=== PATIENT | male | born 1955 | race Caucasian/White ===

== ENCOUNTER 2019-04-18 01:57 | Day surgery (SDC) | payer MEDICARE, SELFPAY ==
[2019-04-18] VITALS (10 sets, daily range): BP systolic 121–157; BP diastolic 73–94; PULSE 69–87; RESP 10–20; TEMP 36.7–36.8; O2SAT 97–100; BMI 23.6
[2019-04-18 07:32] LABS: Basophils Absolute Auto 0.1 K/mm3 (0.0-0.1); Eosinophils Absolute Auto 0.1 K/mm3 (0-0.3); Eosinophils Percent Auto 2.7 % (0-4.4); Hematocrit 44.9 % (42.0-52.0); Hemoglobin 14.7 g/dL (14.0-18.0); Immature Granulocyte Absolute 0.01 K/mm3 (0.00-0.031); Immature Granulocyte Percent A 0.2 % (0-0.5); Lymphocytes Absolute Auto 1.02 K/mm3 (0.9-3.2); Lymphocytes Percent Auto 19.4 % (18.3-44.2); Mean Corpuscular HGB Conc 32.7 g/dl (32-36); Mean Corpuscular Hemoglobin 30.1 pg (26-34); Mean Corpuscular Volume 91.8 fl (80-100); Mean Platelet Volume 10.9 fl (7.4-10.4); Monocytes Absolute Auto 0.4 K/mm3 (0.1-0.6); Monocytes Percent Auto 7.6 % (2.6-8.5); Neutrophils Absolute Auto 3.6 K/mm3 (1.3-6.7); Neutrophils Percent Auto 69.1 % (45.5-73.1); Platelet Count Result 184 k/mm3 (150-375); Red Blood Count 4.89 M/mm3 (4.6-6.20); Red Cell Distribution Width 12.3 % (11.5-14.5); White Blood Count 5.3 K/mm3 (4.5-10.0)
[2019-04-18 07:44] LABS: INR 0.9; Prothrombin Time 12.2 Seconds (11.1-14.7)
[2019-04-18 07:49] LABS: Blood Urea Nitrogen 14 mg/dL (9-20); Carbon Dioxide 33 mmol/L (22-30); Chloride 99 mmol/L (98-107); Estimated CRCL calculation 83 ml/min; Estimated Glomerular Filt Rate > 60; Glucose 101 mg/dL (75-110); Potassium 4.3 mmol/L (3.4-5.0); Sodium 139 mmol/L (137-145)
--- NOTE | 2019-04-18 08:41 | WPDMODSED ---
Moderate Sedation Note-Pt Data Patient Data Diagnosis: Severe mitral valve regurgitation, preoperative evaluation Present Complaint: None Procedure to be performed/Plan: Left heart catheterization with selective left and right coronary angiography with left ventriculography and hemodynamics and right heart catheterization with shunt run and hemodynamics History and Physical Update: History and physical reviewed and agree new additional changes. Please see note below as included as history of physical update. Brief HPI: Patient is a very pleasant 63-year-old gentleman with history of hypothyroidism, seizure disorder found to have severe mitral valve regurgitation with posterior mitral valve prolapse who underwent JOSE confirming severe mitral valve regurgitation (at least moderate highly eccentric regurgitation) who is now referred for preoperative workup with left and right heart catheterization prior to consideration for mitral clip at [place]. Review of systems: No fever, chills, edema, near-syncope, syncope, rashes, headache, vision changes, seizure, bleeding, recent illnesses, abdominal pain, dysphagia, myalgias, focal weakness, imbalance, falls, orthopnea or PND. No wheezing, coughing just. Remainder of the review of systems otherwise negative. Impression: Severe mitral valve regurgitation with mitral valve prolapse of the posterior leaflet Seizure disorder Hypothyroidism Plan of care: Referral to [facility] for consideration for mitral clip Preoperative workup with cardiac catheterization. Further recommendations to follow. Allergies Allergy/AdvReac Type Severity Reaction Status Date / Time No Known Allergies Allergy Mild Verified 10/09/11 13:10 Home Medications Medication Instructions Recorded Confirmed Type levothyroxine 125 mcg PO DAILY 03/25/19 04/18/19 History phenobarbital 30 mg PO BID 03/25/19 04/18/19 History phenytoin sodium extended 100 mg PO BID 03/25/19 04/18/19 History [Dilantin Extended] Current Medications: Active Medications See list above Sodium Chloride (Normal Saline Iv) 500 mls @ 100 mls/hr IV CONT .Q5H AYAAN Sedation/Anesthesia: No previous sedation/anesthesia problems (including family history). [facility] Past Medical History Medical History Hypothyroidism Mitral regurgitation Mitral valve prolapse Seizure disorder Family History Family History Father Heart disease Social History Social History Smoking status: Never smoker Second hand tobacco smoke exposure: No Mod Sed Physical Exam Physical Exam Pre Procedural Exam: Normal: Appearance, Eyes, Ears, Nose, Neck (Supple, normal range of motion), Throat (Posterior hypopharynx clear, nonerythematous), Airway (Normal anatomy, no obstruction), Lungs (Clear to auscultation bilaterally), Heart Size, Heart Rate (Systolic murmur), Heart Rhythm, Neuro Exam, Abdomen, Liver, Kidneys, Extremities and Skin Hours since solid foods: 12 Hours since liquid intake: 12 Internal Medicine - PN: Obj Da Vital Signs Vital Signs: Vital Signs - 24 hr 04/18/19 07:23 Temperature 36.8 C Pulse Rate 70 Respiratory Rate 14 Blood Pressure 142/94 H Pulse Oximetry 99 Meds/Results Medications: Active Medications Generic Name Dose Route Start Last Admin Trade Name Freq PRN Reason Stop Dose Admin Sodium Chloride 500 mls @ 100 mls/hr 04/18/19 06:10 Normal Saline Iv IV CONT .Q5H AYAAN Labs CBC & Chem 7: 04/18/19 07:25 04/18/19 07:25 Labs: Laboratory Results - last 24 hr 04/18/19 04/18/19 04/18/19 07:25 07:25 07:25 WBC 5.3 RBC 4.89 Hgb 14.7 Hct 44.9 MCV 91.8 MCH 30.1 MCHC 32.7 RDW 12.3 Plt Count 184 MPV 10.9 H Immature Gran % (Auto) 0.2 Neut % (Auto) 69.1 Lymph % (Auto) 19
--- NOTE | 2019-04-18 09:30 | WPDCARDPROC ---
Cardiac Cath Procedure Note Date of procedure:: 04/18/19 Performing physician:: Jaime Cage MD Indication:: Severe mitral valve regurgitation, preoperative evaluation prior to mitral clip consideration Brief clinical history:: patient is a very pleasant 63-year-old gentleman with a history of hypothyroidism and seizure disorder found to have severe mitral valve regurgitation with posterior mitral valve prolapse referred for preoperative workup prior to mitral valve clip consideration. Procedure Procedure performed:: Left heart catheterization with selective left and right coronary angiography with left ventriculography and hemodynamics Sedation/Medication given:: MODERATE SEDATION/ANESTHESIA ADMINISTRATION: Patient reports no prior problems with sedation/anesthesia. Please see pre-sedation noted for physical examination documentation. Sedation start time was 0908 and end time was 0925 for a total intra-service/procedure face-face time of 17 minutes. A total of 1mg intravenous Versed and a total of 50mcg intravenous Fentanyl in multiple divided doses was administered for moderate sedation. Moderate sedation was administered by qualified/certified observer Jayson Hobbs RN under my supervision with intra-procedure [id number] observation and management throughout the entirety of the procedure. There were no other issues or complications and patient tolerated the procedure well. See post-anesthesia documentation. Access site:: Right femoral artery Estimated blood loss:: 5-10ml Procedure note:: PROCEDURES PERFORMED: 1. Left heart catheterization 2. Selective left and right coronary angiography 3. Left ventriculography and hemodynamics 4. Moderate/conscious sedation administration CATHETERS UTILIZED: Left coronary system- 5 [place]an JL4 catheter Right coronary system- 5 [place] JR4 catheter Left ventriculography and hemodynamics- 5 [place] angled pigtail catheter PROCEDURE IN DETAIL: After verbal and written informed consent was obtained the patient, risks, benefits, and alternatives explained in detail the patient agreed to proceed with the plan of care as outlined above. The patient was subsequently brought to the cardiac catheterization lab, placed on the cardiac catheterization table, and prepped and draped in the usual sterile fashion. Utilizing approximately 10cc of 1% subcutaneous Lidocaine, the right groin was then locally anesthetized. Utilizing the modified Seldinger technique, a 5 [place]an arterial vascular access sheath was inserted in the right common femoral artery easily and without complications. Through this access, coronary angiography was subsequently obtained in multiple standard re-projections. Following this, a 5 [place] angled pigtail catheter was advanced retrograde across aortic valve into the cavity of the left ventricle. Left ventriculography was performed and pullback across aortic valve was subsequently recorded. The vascular access sheath and angiographic catheters were flushed before and after catheter exchanges. At the conclusion of the diagnostic portion of the procedure, all angiographic guidewires and catheters were removed and the 5 [place]an arterial vascular access sheath was then pulled and satisfactory hemostasis was achieved using manual compression. There no complications noted at the conclusion of the diagnostic portion of the study. Findings:: CORONARY ANGIOGRAPHY: The LEFT MAIN arose from the left coronary cusp and was without angiographically significant disease. The left main then bifurcated into the left anterior descending artery and circumflex coronary artery. LEFT ANTERIOR DESCENDING ARTERY: Moderate caliber vessel without angiographically significant disease extending to the LV apex giving rise to a small to moderate size diagonal branch. CIRCUMFLEX CORONARY ARTERY: Moderate caliber nondominant vessel do rise to moderate-sized up obtuse marginal branch without angiographically significant disease.
--- NOTE | 2019-04-18 10:33 | SUR.PHASEII ---
1008-Manual pressure off at 1008. Groin soft and non-tender, no evidence of bleeding or hematoma noted. Strong right pedal pulse noted. Will continue to monitor.
--- NOTE | 2019-04-18 15:19 | SUR.PHASEII ---
1451 DETAILED WRITTEN AND VERBAL DISCHARGE INSTRUCTIONS REVIEWED W PATIENT AND AT BEDSIDE. BOTH VERBALIZE UNDERSTANDING. IV DC'D. PT TAKEN OUT IN WHEELCHAIR.
== END 2019-04-18 13:15 | disposition home or self-care (01) ==
PROVIDERS: PCP Family Medicine; Visit Provider Internal Medicine Cardiovascular Disease
PROC: 4A023N7 Measurement of Cardiac Sampling and Pressure, Left Heart, Percutaneous Approach (ICD-10-PCS; CPT 93452; principal; 2019-04-18 08:30)
DX: Z01.810 Encounter for preprocedural cardiovascular examination (principal); I34.0 Nonrheumatic mitral (valve) insufficiency; I34.1 Nonrheumatic mitral (valve) prolapse; R93.1 Abnormal findings on diagnostic imaging of heart and coronary circulation; I10 Essential (primary) hypertension; G40.909 Epilepsy, unspecified, not intractable, without status epilepticus; E03.9 Hypothyroidism, unspecified
CPT/HCPCS: 36415; 80048; 85025; 85610; 93458; C1887; C1894; J1644; J2250; J3010; J7040

== ENCOUNTER 2020-05-21 08:16 | Outpatient (CLI) | payer MEDICARE, SELFPAY ==
--- NOTE | 2020-05-21 | ECHO_ITS ---
Patient Info Name: Juwan Torres Age: 64 years : 1955 Gender: Male Ht: 70 in Wt: 170 lbs BSA: 1.96 m2 HR: 70 bpm BP: 128 / 76 mmHg Heart Rhythm: Sinus Rhythm Technical Quality: Excellent Exam Date: 05/21/2020 9:01 AM Exam Location: [facility] Patient Status: Outpatient Admit Date: 05/21/2020 Staff Ordering Physician: LAUREN QUINTANILLA MD Cataloging Assistant: Reinier Gonzalez RDCS Attending Provider: LAUREN QUINTANILLA MD Referring Physician: SOCORRO COBIAN; Exam Type: CA echo doppler color flow Study Info Indications I34.0 - Nonrheumatic mitral (valve) insufficiency Complete two-dimensional, color flow and Doppler transthoracic echocardiogram is performed. Strain analysis performed. History/Risk Factors Mitral regurgitation. Summary 1. Complete two-dimensional, color flow and Doppler transthoracic echocardiogram is performed. 2. Left ventricular chamber dimension is normal. 3. Left ventricular systolic function is normal, estimated at 65-70%. 4. Left atrial chamber dimension is mildly enlarged. 5. The mitral valve has posterior prolapse. 6. There is moderate mitral valve regurgitation. 7. Thickened posterior leaflet with significant prolapse. 8. Highly eccentric jet of MR appears to be moderate in severity. Left Ventricle Left ventricular chamber dimension is normal. Left ventricular systolic function is normal, estimated at 65-70%. The left ventricular diastolic function is normal. Right Ventricle Right ventricular chamber dimension is normal. Left Atria Left atrial chamber dimension is mildly enlarged. Right Atria Right atrial chamber dimension is normal. Aortic Valve The aortic valve is normal. Pulmonic Valve The pulmonic valve is normal. Mitral Valve The mitral valve has posterior prolapse. There is moderate mitral valve regurgitation. Thickened posterior leaflet with significant prolapse. Highly eccentric jet of MR appears to be moderate in severity. Tricuspid Valve The tricuspid valve leaflets are normal. Pericardium/Pleural The pericardium appears normal. Aorta The aortic root size at the sinus of Valsalva is normal. Left Ventricular Outflow Tract Name Value Normal LVOT 2D LVOT Diameter 2.0 cm LVOT Doppler LVOT Peak Gradient 4 mmHg LVOT Mean Gradient 2 mmHg LVOT VTI 19 cm LVOT VTI/AV VTI Ratio 0.8 LVOT Stroke Volume 56 ml LVOT CO 4.0 l/min LVOT CI 2.1 l/min/m2 Mitral Valve Name Value Normal MV Doppler MV Peak Gradient 1 mmHg MV Mean Gradient 0 mmHg MV Decel Ford 449 cm/s2 MV PHT
== END 2020-05-21 08:17 | disposition home or self-care (01) ==
PROVIDERS: PCP Family Medicine
DX: I34.0 Nonrheumatic mitral (valve) insufficiency (principal)
CPT/HCPCS: 93306

== ENCOUNTER → 2020-06-01 01:37 | Outpatient (CLI) | payer MEDICARE, SELFPAY ==
[2020-06-02 08:28] LABS: SARS-CoV-2 RNA PCR Negative
== END ==
PROVIDERS: PCP Family Medicine; Visit Provider Internal Medicine Gastroenterology
DX: Z01.812 Encounter for preprocedural laboratory examination (principal); Z20.822 Contact with and (suspected) exposure to COVID-19
CPT/HCPCS: C9803; U0003; U0005

== ENCOUNTER 2020-06-04 00:50 | Day surgery (SDC) | payer MEDICARE, SELFPAY ==
[2020-04-25 13:45] VITALS: BMI 25.1
[2020-06-04 07:10] VITALS: BP 136/72; PULSE 80; RESP 20; TEMP 36.2; O2SAT 98; BMI 22.9
[2020-06-04] MEDS: LACTATED RINGERS 1,000 ML 150 ML IV CONT (07:24)
--- NOTE | 2020-06-04 07:29 | PM.HPGS ---
History of Present Illness History of Present Illness Consent: Risks, benefits, and alternatives have been discussed and questions answered. Patient agrees to proceed with procedure. Chief complaint: Neoplasm Screening Narrative: Juwan Torres is a 64 year old male referred for colon cancer screening. His last colonoscopy was 10 years ago Review of Systems Review of Systems: All systems reviewed & are unremarkable except as noted in HPI and below PMFSH Past Medical History Medical History Hypothyroidism Mitral regurgitation Mitral valve prolapse Seizure disorder Surgical History Surgical History H/O cardiac catheterization H/O right knee surgery Family History Family History Father Heart disease Social History Social History Smoking status: Never smoker Second hand tobacco smoke exposure: No Alcohol intake: current Alcohol use details: SOCIALLY Substance use: unknown Substance use type: unknown Living arrangements: with family Spiritual care concerns: No Meds Home Medications and Allergies Home Medications Medication Instructions Recorded Confirmed Type levothyroxine 125 mcg PO DAILY 03/25/19 06/04/20 History phenobarbital 30 mg PO BID 03/25/19 06/04/20 History phenytoin sodium extended 100 mg PO BID 03/25/19 06/04/20 History [Dilantin Extended] Allergies Allergy/AdvReac Type Severity Reaction Status Date / Time No Known Allergies Allergy Mild Verified 06/04/20 07:08 Vital Signs Vital Signs - 24 hr 06/04/20 07:10 Temperature 36.2 C L Pulse Rate 80 Respiratory Rate 20 Blood Pressure 136/72 Pulse Oximetry 98 Exam Resp: Auscultation: clear to auscultation bilaterally Cardio: Rate: regular rate Rhythm: regular rhythm GI: GI Palp: Yes Soft to palpation and No Tenderness to palpation present (GI) Assessment and Plan Assessment and plan (1) Colon cancer screening: Code(s): Z12.11 - Encounter for screening for malignant neoplasm of colon Status: Acute Assessment and Plan: Colonoscopy with possible biopsy or polypectomy or cautery or injection of substances.
--- NOTE | 2020-06-04 07:49 | P.PNAN_ITS ---
Anes - Initial Pre Proc Eval Procedure: Operation Date: 06/04/20 08:30 Proposed Procedures p Screening Colonoscopy - Sergio Camacho MD Date/Time: 06/04/20 07:49 Surgeon: Sergio Camacho MD Pre Op Diagnosis: Neoplasm Screening Patient Data Age: 64 Gender: M Height: 5 ft 10 in Weight: 72.6 kg Last Vital Signs Temp 97.1 F L 06/04/20 07:10 Pulse 80 06/04/20 07:10 Resp 20 06/04/20 07:10 BP 136/72 06/04/20 07:10 Pulse Ox 98 06/04/20 07:10 Allergies Allergy/AdvReac Type Severity Reaction Status Date / Time No Known Allergies Allergy Mild Verified 06/04/20 07:08 Home Medications Medication Instructions Recorded Confirmed Type levothyroxine 125 mcg PO DAILY 03/25/19 06/04/20 History phenobarbital 30 mg PO BID 03/25/19 06/04/20 History phenytoin sodium extended 100 mg PO BID 03/25/19 06/04/20 History [Dilantin Extended] Patient hx anesthesia problems: none Family hx anesthesia problems: none [facility] Past Medical History Medical History Hypothyroidism Mitral regurgitation Mitral valve prolapse Seizure disorder Surgical History Surgical History H/O cardiac catheterization H/O right knee surgery Family History Family History Father Heart disease Social History Social History Smoking status: Never smoker Second hand tobacco smoke exposure: No Alcohol intake: current Alcohol use details: SOCIALLY Substance use: unknown Substance use type: unknown Living arrangements: with family Spiritual care concerns: No Anes - Eval Final PreProcedure Day of Procedure 06/04/20 07:49 Patient weight: normal Heart: regular rate and rhythm Lungs: clear to auscultation Airway: Mallampati scale class II Neurological: alert and oriented Last oral intake: >/= 8 hours ASA classification: III Emergent: no Anesthetic plan: proceed Anesthesia type and monitoring: general GIVS and standard monitoring Informed Consent: The patient's anesthetic plan and its attendant risks and benefits were discussed with the patient/family/POA. Questions were solicited and answers provided to the satisfaction of the patient/family/POA.
[2020-06-04 08:41] VITALS: BP 96/55; PULSE 86; RESP 18; O2SAT 98
[2020-06-04 08:51] VITALS: BP 111/65; PULSE 71; RESP 16; O2SAT 98
[2020-06-04 09:01] VITALS: BP 117/66; PULSE 76; RESP 20; O2SAT 98
== END 2020-06-04 09:16 | disposition home or self-care (01) ==
PROVIDERS: PCP Family Medicine; Visit Provider Internal Medicine Gastroenterology
PROC: 0DJD8ZZ Inspection of Lower Intestinal Tract, Via Natural or Artificial Opening Endoscopic (ICD-10-PCS; CPT 45378; principal; 2020-06-04 08:30)
DX: Z12.11 Encounter for screening for malignant neoplasm of colon (principal); K64.8 Other hemorrhoids; E03.9 Hypothyroidism, unspecified; I34.0 Nonrheumatic mitral (valve) insufficiency; I34.1 Nonrheumatic mitral (valve) prolapse; G40.909 Epilepsy, unspecified, not intractable, without status epilepticus
CPT/HCPCS: G0121; J2704; J7120

== ENCOUNTER 2021-07-22 13:14 | Outpatient (CLI) | payer MEDICARE, SELFPAY ==
--- NOTE | 2021-07-22 | ECHO_ITS ---
Patient Info Name: Juwan Torres Age: 65 years : 1955 Gender: Male Ht: 70 in Wt: 170 lbs BSA: 1.96 m2 HR: 85 bpm BP: 143 / 78 mmHg Heart Rhythm: Sinus Rhythm Technical Quality: Fair Exam Date: 07/22/2021 2:22 PM Exam Location: [facility] Patient Status: Outpatient Admit Date: 07/22/2021 Staff Ordering Physician: Cj Marie MD Core Sticker: Anai Hsu RDCS Attending Provider: Cj Marie MD Referring Physician: Cynthia HICKEY; Exam Type: CA echo doppler color flow Study Info Indications - MITRAL INSUFFICIANCY Complete two-dimensional, color flow and Doppler transthoracic echocardiogram is performed. Summary 1. Complete two-dimensional, color flow and Doppler transthoracic echocardiogram is performed. 2. Left ventricular chamber dimension is normal. 3. Left ventricular systolic function is normal, estimated at 60-65%. 4. The mitral valve has posterior prolapse. 5. There is moderate mitral valve regurgitation. Left Ventricle Left ventricular chamber dimension is normal. Left ventricular systolic function is normal, estimated at 60-65%. Left ventricular septal wall motion is normal. The left ventricular diastolic function is normal. Right Ventricle Right ventricular chamber dimension is normal. Left Atria Left atrial chamber dimension is mildly enlarged. Right Atria Right atrial chamber dimension is normal. Aortic Valve The aortic valve is normal. Pulmonic Valve The pulmonic valve is normal. Mitral Valve The mitral valve has posterior prolapse. There is moderate mitral valve regurgitation. Tricuspid Valve The tricuspid valve leaflets are normal. Pericardium/Pleural The pericardium appears normal. Aorta The aortic root size at the sinus of Valsalva is normal. Left Ventricular Outflow Tract Name Value Normal LVOT 2D LVOT Diameter 2.1 cm LVOT Doppler LVOT Peak Gradient 5 mmHg LVOT Mean Gradient 3 mmHg LVOT VTI 21 cm LVOT VTI/AV VTI Ratio 1.0 LVOT Stroke Volume 69 ml LVOT CO 14.8 l/min LVOT CI 7.6 l/min/m2 Pulmonic Valve Name Value Normal PV Doppler PV Peak Gradient 2 mmHg Mitral Valve Name Value Normal MV Doppler MV Decel Door 414 cm/s2 MV PHT 54 ms MV Area (PHT) 4.0 cm2 4.0-5.0 MV Diastolic Functi
== END 2021-07-22 13:15 | disposition home or self-care (01) ==
LOC: ANHCARD 13:15
PROVIDERS: PCP Family Medicine; Visit Provider Family Medicine
DX: I34.0 Nonrheumatic mitral (valve) insufficiency (principal)
CPT/HCPCS: 93306

== ENCOUNTER 2022-09-23 14:07 | Outpatient (CLI) | payer MEDICARE, SELFPAY ==
[2022-09-23 15:10] LABS: Basophils Percent Auto 0.5 % (0.2-1.2); Eosinophils Absolute Auto 0.2 K/mm3 (0-0.3); Eosinophils Percent Auto 2.8 % (0-4.4); Hematocrit 40.6 % (42.0-52.0); Hemoglobin 13.4 g/dL (14.0-18.0); Immature Granulocyte Absolute 0.01 K/mm3 (0.00-0.031); Immature Granulocyte Percent A 0.2 % (0-0.5); Lymphocytes Percent Auto 24.6 % (18.3-44.2); Mean Corpuscular Hemoglobin 28.8 pg (26-34); Mean Corpuscular Volume 87.1 fl (80-100); Mean Platelet Volume 10.9 fl (7.4-10.4); Monocytes Absolute Auto 0.4 K/mm3 (0.1-0.6); Monocytes Percent Auto 7.2 % (2.6-8.5); Neutrophils Absolute Auto 3.9 K/mm3 (1.3-6.7); Neutrophils Percent Auto 64.7 % (45.5-73.1); Platelet Count Result 190 k/mm3 (150-375); Red Blood Count 4.66 M/mm3 (4.6-6.20); Red Cell Distribution Width 13.6 % (11.5-14.5); White Blood Count 6.1 K/mm3 (4.5-10.0)
== END 2022-09-23 14:08 | disposition home or self-care (01) ==
LOC: ANHLAB 14:12
PROVIDERS: PCP Nurse Practitioner Family; Visit Provider Specialist
DX: I33.0 Acute and subacute infective endocarditis (principal)
CPT/HCPCS: 36415; 85025; 87040

== ENCOUNTER 2024-06-16 08:13 | Outpatient (CLI) | payer MEDICARE, SELFPAY ==
--- NOTE | ~2024-06-16 | CT_ITS ---
CT Scan of the Chest without Contrast: Clinical Indication: Pulmonary nodule Technique: Contiguous sections were acquired throughout the chest without intravenous contrast. Dose reduction technique was used on this scan by utilizing automated exposure control and iterative recon struction technique. The dose-length product (DLP) was 180.23 mGy-cm. COMPARISON: 05/23/2022 Findings: There is no evidence of any significant mediastinal, hilar or axillary lymphadenopathy. The mediastin al soft tissues appear normal. There is no evidence of pleural or pericardial effusion. 9 mm right middle lobe pulmonary nodule present. There is additional peripheral scarring in the right middle lobe peripherally. Images through the upper abdomen reveal no abnormalities. Impression: 9 mm right middle lobe pulmonary nodule. According to Fleischner Society criteria, recommend either 3 month follow-up CT, PET/CT, or attempted tissue sampling. Adjacent right middle lobe scarring is also present. Reviewed, dictated and finalized at [facility]. Impression: 9 mm right middle lobe pulmonary nodule. According to Fleischner Society criter ia, recommend either 3 month follow-up CT, PET/CT, or attempted tissue sampling . Adjacent right middle lobe scarring is also present.
--- OUTSIDE RECORDS SUMMARY | 2024-06-16 08:17 | XMS_ITS | Data Portability ---
Author Organization [place] [facility], Main Office Address [address] [place] [address] Assessment Encounter Date Assessment Date Assessment LastModified by Organization Details LastModified Time 06/20/2022 06/20/2022 I have reconciled the patient's medications post their discharge from inpatient facility. Not available 06/20/2022 12:12:43 Plan of Treatment Reminders Order Date Submit Date Provider Last Modified By Organization Details Last Modified Time Details Appointments None recorded. Lab PSA, serum or plasma [address] (Lab), [address] [place], [address], 3 08:36:33 TSH, serum or plasma 2022 023 [facility] (Lab), [address] [place], [address], 3 14:02:09 Referral None recorded. Procedures None recorded. Surgeries None recorded. Imaging None recorded. Medication Orders phenobarbit al 30 mg tablet 2022 023 [id number], [address], [place], [id number], 3 08:01:25 Dilantin Extended 100 mg capsule 2022 023 [facility] #[id number], [address], [place], [id number], 3 10:02:58 Patient TargetsNo targets recorded. Patient Instructions Encounter Date Encounter Id Patient Instructions Last Modified By Organization Details Last Modified Time 06/20/2022 [id number] Thank you for your visit to our office today. We would like to request that you reach out to your referring or previous provider and request that they send us a Summary of Care in electronic form, so that we may have it on file in your medical record. At your visit, we had the medical records we needed to provide you with the best possible care; however, for insurance purposes, an electronic Summary of Care is beneficial. Thank you for your assistance in obtaining this information and we look forward to providing continued care to you. Please review your medication list from the Summary of Care for this visit. If there are any differences from what you are currently taking at home, please call us to discuss. Not available 06/20/2022 11:19:34 FU in 3-4mo. Not available 06/23/2022 08:17:21 10/01/2022 [id number] FU in 6 mo, sooner as needed. Not available 10/01/2022 08:36:17 Reason for Referral None Reported. Results Created Date Observation Date Name Description Value Unit Range Abnormal Flag Note LastModifiedBy Organization Detail LastModifiedTime 05/07/1905/15/2022 TESTO STERO NE, FREE+ TOTAL LC/MS testosterone , total, lc/MS 560.1 NG/dL 264.0- 916.0 This [facility] rp LC/MS -MS metho d is curre ntly certi fied by the CDC Hormo ne Stand jose antoniodiz ation Progr am (HoSt ). Adult male refer ence inter thanh is based on a popul ation of healt hy nonob porfirio males (BMI <30) betwe en 19 and 39 years old. Dimas machado, et.al . JCEM 2017, 102;1 161-1 173. PMID: 65469 103. Not Available [facility] (Lab) [address] [place], [address], 05/15/2022 00:07:11 05/07/1905/15/2022 TESTO STERO NE, FREE+ TOTAL LC/MS testosterone , free 6.67 NG/dL 5.00-2 1.00 Not Available [facility] (Lab) [address] [place], [address], 05/15/2022 00:07:11 05/07/19 23 05/15/2022 TESTO STERO NE, FREE+ TOTAL LC/MS % free testosterone 1.19 % 1.50-4 .20 low Perfo rmed at: [facility] [place] [address] [facility] , [place] [address] Lab Direc tor: Amisha pillai MD, Phone : [phone] Not Available [facility] (Lab) [address] [place], [address], 05/15/2022 00:07:11 05/07/19 23 05/07/2022 PHENO SULTANA GENI phenobarbita l 8.6 mcg/m L 15.0-4 0.0 low Not Available [facility] (Lab) [address] [place], [address], 05/07/2022 19:01:44 05/07/19 23 05/07/2022 TEST NOT PERFO RMED test not performed see commen t Pheny toin/ Tashi tin needs to be drawn a red top no gel Not Available [facility] (Lab) [address] [place], [address], 05/07/2022 18:37:42 05/07/19 23 05/07/2022 FOLAT E, SERUM /PLAS MA folate 7.01 NG/mL 2.76-2 0.0 Not Available [facility] (Lab) [address] [place], [address], 05/07/2022 15:42:49 05/07/19 23 05/07/2022 VITAM IN B12 (LUZ MARIA BHARAT ) vb12 555 pg/mL 239-93 1 Not Available [facility] (Lab) [address] [place], [address], 05/07/2022 15:42:44 05/07/19 23 05/07/2022 HEMOG LOBIN A1C HA1C 5.4 % 4.0-6. 0 Diabe sobeida Abdoulayee nabil Crite festus: <5.7% Consi stent with absen ce of diabe sobeida 5.7-6 .4% Consi stent with incre ased risk for diabe sobeida (pred iabet es) >OR=6 .5% Consi stent with diabe sobeida REFER ENCE: Diabe sobeida Care 2016, 39(Garcia ppl.1 ):s13 -s22 Not Available [facility] (Lab) [address] [place], [address], 05/07/2022 15:19:29 05/07/19 23 05/07/2022 VITAM IN D 25-HY DROXY vd25oh 46.2 NG/mL 30-100 Vitam in D Statu s: Defic ient: <20 ng/mL Insuf ficie nt: 20-29 ng/mL Suffi cient : 30-10 0 ng/mL Not Available [facility] (Lab) [address] [place], [address], 05/07/2022 15:12:31 05/07/19 23 05/07/2022 TSH W/REF AARON FT4 TSH with reflex free T4 1.170 uIU/m L 0.465- 4.680 Not Available [facility] (Lab) [address] [place], [address], 05/07/2022 14:19:04 05/07/19 23 05/07/2022 LIPID PANEL cholesterol 209 mg/dL 140-19 9 high NIH RENEE NSUS RECOM MENDA TION FOR MARIA LUZ STERO L: ADULT CHILD LOW RISK: <200 <170 BORDE RLINE : <200- 239 ----- HIGH RISK: >240 >200 Not Available [facility] (Lab) [address] [place], [address], 05/07/2022 13:48:18 05/07/19 23 05/07/2022 LIPID PANEL triglyceride s 155 mg/dL 0-150 high NIH RENEE NSUS REPOR T RECOM MENDA TION FOR TRIGL YCERI SHANNON: ADULT CHILD LOW RISK: <150 ----- BODER LINE: 150-1 99 ----- HIGH RISK: >200 ----- Not Available [facility] (Lab) [address] [place], [address], 05/07/2022 13:48:18 05/07/19 23 05/07/2022 LIPID PANEL HDL cholesterol 33 mg/dL 40- low Not Available [facility] (Lab) [address] [place], [address], 05/07/2022 13:48:18 05/07/1905/07/2022 LIPID PANEL LDL cholesterol, calculated 145 mg/dL 0-130 high NIH RENEE NSUS REPOR T RECOM MENDA TIONS FOR LDL: ADULT CHILD LOW RISK <130 <110 (OPTI MAL LDL) <100 ----- SUKH RLINE : 130-1 59 ----- HIGH RISK: >160 >130 A TRIGL YCERI DE RESUL T >400 INVAL IDATE S THE CALCU LATIO N FOR LDL FRACT IONAT ION - THE LDL RESUL T WILL NOT BE REPOR RANJITH. Not Available [facility] (Lab) [address] [place], [address], 05/07/2022 13:48:18 05/07/1905/07/2022 BASIC METAB OLIC PANEL sodium 136 mmol/ L 137-14 5 low Not Available [facility] (Lab) [address] [place], [address], 05/07/2022 13:48:04 05/07/19 23 05/07/2022 BASIC METAB OLIC PANEL potassium 4.6 mmol/ L 3.5-5. 1 Not Available [facility] (Lab) [address] [place], [address], 05/07/2022 13:48:04 05/07/19 23 05/07/2022 BASIC METAB OLIC PANEL chloride 98 mmol/ L 98-107 Not Available [facility] (Lab) [address] [place], [address], 05/07/2022 13:48:04 05/07/19 23 05/07/2022 BASIC METAB OLIC PANEL carbon dioxide 30 mmol/ L 22-30 Not Available [facility] (Lab) [address] [place], [address], 05/07/2022 13:48:04 05/07/19 23 05/07/2022 BASIC METAB OLIC PANEL anion gap 12.6 mmol/ L 14-22 low Not Available [facility] (Lab) [address] [place], [address], 05/07/2022 13:48:04 05/07/19 23 05/07/2022 BASIC METAB OLIC PANEL glucose 105 mg/dL 70-99 high Not Available [facility] (Lab) [address] [place], [address], 05/07/2022 13:48:04 05/07/19 23 05/07/2022 BASIC METAB OLIC PANEL BUN 11 mg/dL 8-19 Not Available [facility] (Lab) [address] [place], [address], 05/07/2022 13:48:04 05/07/19 23 05/07/2022 BASIC METAB OLIC PANEL creatinine 0.73 mg/dL 0.66-1 .25 Not Available [facility] (Lab) [address] [place], [address], 05/07/2022 13:48:04 05/07/19 23 05/07/2022 BASIC METAB OLIC PANEL GFR >60 Refer ence Range : [place] ge GFR Healt hy Adult : >60 mL/mi n/1.7 3 m2 Chron ic Kidne y Disea se: 15-60 mL/mi n/1.7 3 m2 Kidne y Failu re: <15/m L/min /1.73 m2 www.n iddk. nih.g ov The MDRD study equat ion has not been valid ated in child rita <18 years of age; pregn ant women ; the elder ly >85 years of age; or in some racia l or ethni c subgr oups, such as Hispa nics. Outsi de the valid ated gerri eters , estim ated GFR is less accur ate, requi ring clini ynes judgm ent on a case- by-ca se basis . Clini ynes inter preta tion for other races and ages must be made by the clini genoveva. The MDRD study equat ion has not been valid ated for the evalu ation of serum creat inine relat ed to nutri hernesto l statu s or medic ation usage . For perso ns <18 years of age, a pedia tric GFR calcu lator is avail able on the [facility] websi te: https ://sonja cho.jenny rios.brie barroso/pr ofess ional s/kdo qi/gf r_cal culat or Not Available [facility] (Lab) [address] [place], [address], 05/07/2022 13:48:04 05/07/19 23 05/07/2022 BASIC METAB OLIC PANEL calcium 9.2 mg/dL 8.4-10 .2 Not Available [facility] (Lab) [address] [place], [address], 05/07/2022 13:48:04 05/07/19 23 05/07/2022 CBC/C OMPLE TE BLD COUNT W/DIF F white blood cells 6.9 x10'3 /uL 4.2-10 .8 Not Available [facility] (Lab) [address] [place], [address], 05/07/2022 13:37:55 05/07/19 23 05/07/2022 CBC/C OMPLE TE BLD COUNT W/DIF F red blood cells 4.85 x10'6 /uL 4.10-5 .80 Not Available [facility] (Lab) [address] [place], [address], 05/07/2022 13:37:55 05/07/19 23 05/07/2022 CBC/C OMPLE TE BLD COUNT W/DIF F hemoglobin 14.0 g/dL 13.2-1 7.0 Not Available [facility] (Lab) [address] [place], [address], 05/07/2022 13:37:55 05/07/19 23 05/07/2022 CBC/C OMPLE TE BLD COUNT W/DIF F hematocrit 42.8 % 39.3-5 0.0 Not Available [facility] (Lab) [address] [place], [address], 05/07/2022 13:37:55 05/07/19 23 05/07/2022 CBC/C OMPLE TE BLD COUNT W/DIF F mean red cell volume 88.2 fL 80.0-9 7.0 Not Available [facility] (Lab) [address] [place], [address], 05/07/2022 13:37:55 05/07/19 23 05/07/2022 CBC/C OMPLE TE BLD COUNT W/DIF F mean red cell hemoglobin 28.9 pg 27.0-3 3.0 Not Available [facility] (Lab) [address] [place], [address], 05/07/2022 13:37:55 05/07/19 23 05/07/2022 CBC/C OMPLE TE BLD COUNT W/DIF F mean RBC HGB concentratio n 32.7 g/dL 31.0-3 6.0 Not Available [facility] (Lab) [address] [place], [address], 05/07/2022 13:37:55 05/07/19 23 05/07/2022 CBC/C OMPLE TE BLD COUNT W/DIF F red cell distribution width 13.2 % 11.8-1 5.5 Not Available [facility] (Lab) [address] [place], [address], 05/07/2022 13:37:55 05/07/19 23 05/07/2022 CBC/C OMPLE TE BLD COUNT W/DIF F platelets 226 x10'3 /uL 150-40 0 Not Available [facility] (Lab) [address] [place], [address], 05/07/2022 13:37:55 05/07/19 23 05/07/2022 CBC/C OMPLE TE BLD COUNT W/DIF F mean platelet volume 10.3 fL 9.0-12 .4 Not Available [facility] (Lab) [address] [place], [address], 05/07/2022 13:37:55 05/07/19 23 05/07/2022 CBC/C OMPLE TE BLD COUNT W/DIF F neutrophils 77.0 % 39.0-7 2.0 high Not Available [facility] (Lab) [address] [place], [address], 05/07/2022 13:37:55 05/07/19 23 05/07/2022 CBC/C OMPLE TE BLD COUNT W/DIF F lymphocytes 11.8 % 16.0-4 7.0 low Not Available [facility] (Lab) [address] [place], [address], 05/07/2022 13:37:55 05/07/19 23 05/07/2022 CBC/C OMPLE TE BLD COUNT W/DIF F monocytes 9.1 % 5.0-12 .0 Not Available [facility] (Lab) [address] [place], [address], 05/07/2022 13:37:55 05/07/19 23 05/07/2022 CBC/C OMPLE TE BLD COUNT W/DIF F eosinophils 1.2 % 1.0-7. 0 Not Available [facility] (Lab) [address] [place], [address], 05/07/2022 13:37:55 05/07/19 23 05/07/2022 CBC/C OMPLE TE BLD COUNT W/DIF F basophils 0.6 % 0.0-2. 0 Not Available [facility] (Lab) [address] [place], [address], 05/07/2022 13:37:55 05/07/1905/07/2022 CBC/C OMPLE TE BLD COUNT W/DIF F immature granulocytes 0.3 % 0.00-0 .50 Not Available [facility] (Lab) [address] [place], [address], 05/07/2022 13:37:55 05/07/19 23 05/07/2022 CBC/C OMPLE TE BLD COUNT W/DIF F neutrophils, absolute count 5.31 x10'3 /uL 1.5-8. 0 Not Available [facility] (Lab) [address] [place], [address], 05/07/2022 13:37:55 05/07/19 23 05/07/2022 CBC/C OMPLE TE BLD COUNT W/DIF F lymphocytes, absolute count 0.81 x10'3 /uL 1.07-3 .43 low Not Available [facility] (Lab) [address] [place], [address], 05/07/2022 13:37:55 05/07/19 23 05/07/2022 CBC/C OMPLE TE BLD COUNT W/DIF F monocytes, absolute count 0.63 x10'3 /uL 0.29-0 .99 Not Available [facility] (Lab) [address] [place], [address], 05/07/2022 13:37:55 05/07/19 23 05/07/2022 CBC/C OMPLE TE BLD COUNT W/DIF F eosinophils, absolute count 0.08 x10'3 /uL 0.02-0 .53 Not Available [facility] (Lab) [address] [place], [address], 05/07/2022 13:37:55 05/07/19 23 05/07/2022 CBC/C OMPLE TE BLD COUNT W/DIF F basophils, absolute count 0.04 x10'3 /uL 0.01-0 .08 Not Available [facility] (Lab) [address] [place], [address], 05/07/2022 13:37:55 05/07/19 23 05/07/2022 CBC/C OMPLE TE BLD COUNT W/DIF F immature granulocytes ,absolute 0.02 x10'3 /uL 0.00-0 .05 Not Available [facility] (Lab) [address] [place], [address], 05/07/2022 13:37:55 05/07/19 23 05/07/2022 CBC/C OMPLE TE BLD COUNT W/DIF F nucleated red blood cells 0.0 % -0 Not Available [facility] (Lab) [address] [place], [address], 05/07/2022 13:37:55 05/07/19 23 05/07/2022 CBC/C OMPLE TE BLD COUNT W/DIF F NRBC# 0.00 x10'3 /uL Not Available [facility] (Lab) [address] [place], [address], 05/07/2022 13:37:55 10/02/19 23 10/01/2022 TSH W/REF AARON FT4 TSH with reflex free T4 1.540 uIU/m L 0.465- 4.680 Not Available [facility] (Lab) [address] [place], [address], 10/01/2022 14:02:09 10/02/19 23 10/01/2022 PSA, TOTAL PSA, total 1.20 NG/mL 0.00-4 .00 Not Available [facility] (Lab) [address], [place], [address], 10/01/2022 14:02:15 10/22/19 23 10/21/2022 PSA, serum or plasm a No observ ation record ed. Not Available 2022 08:36:33 11/20/19 23 11/19/2022 MRI, brain + brain stem, w/wo contr ast No observ ation record ed. [facility]: Pulmonology [address] [facility], [place], [address], 11/20/2022 07:38:47 Result Notes None recorded. Problems Name Problem SNOMED Code Status Onset Date Resolution Date Notes Provider Name and Address Organization Details Recorded Time Administratio n of pneumococcal vaccine Active 2022 Not Available [facility] 3 01:47:02 Tachycardia 7816668 Active 2022 Not Available [facility] 3 01:47:02 Hypothyroidis m 51513870 Active 2022 Not Available [facility] 3 01:47:02 Fatigue 95286108 Active 2022 Not Available [facility] 3 01:47:02 Epilepsy 68486229 Active 2022 Not Available [facility] 3 01:47:02 Nausea 440272472 Active 2022 Dionna Souza NP [address] [facility] [facility] [address], [place], [address] , [employer] [facility] 3 11:27:29 History of repair of mitral valve 661403177 Active 2022 Dionna Souza NP [address] [facility], [place], [address] , [place] [facility] 3 08:16:53 Excessive cerumen in ear canal 570695774 Active 2022 Dionna Souza NP [address] [facility], [address] [address], [place], [address] , [facility] [employer] [facility] 3 08:29:23 Nocturia 691761707 Active 2022 Dionna Souza NP [address] [facility], [facility] [address], [place], [address] , [facility] [employer] [facility] 3 08:37:06 Problem Notes None recorded. Procedures Surgical History Date Name Laterality Status Provider Name and Address Organization Details Recorded Time 3 Transitional _Care_Manage ment completed Dionna Gerardo RN [facility] [employer] [facility] 06/20/2022 11:19:35 3 Ananda sten, valve or trans af completed Dionna Gerardo RN [facility] [employer] [facility] 06/20/2022 11:30:33 Knee Surgery completed Not Available [employer] 05/29/2022 01:46:47 Imaging Results Imaging Date Name Status LastModified by Organiz ation Details LastModified Time 10/21/2022 PSA, serum or plasma completed Information not available 10/24/2022 08:36:33 11/19/2022 MRI, brain + brain stem, w/wo contrast completed [facility]: Pulmonology [address] [place], [address], 11/20/2022 07:38:47 Procedure Notes None recorded. Medical Equipment None Reported. Allergies No known drug allergies Medications Name Sig Start Date Stop Date Status Note LastModified by Organization Details LastModified Time amoxicill in 500 mg capsule TAKE 4 CAPSULES BY MOUTH 30 TO 60 MINUTES PRIOR TO DENTAL APPOINTM ENT active Not Available Not Available No t Available azithromy joaquin 250 mg tablet TK 2 TS PO ON DAY 1, THEN TK 1 T PO D FOR 4 DAYS 05/07 completed Not Available Not Available Not Available metoprolo l succinate ER 50 mg tablet,ex tended release 24 hr 1.5 tab po daily. active Not Available Not Available No t Available phenytoin sodium extended 100 mg capsule TAKE 1 CAPSULE BY MOUTH EVERY MORNING AND 2 CAPSULES EVERY EVENING active Not Available Not Available No t Available ondansetr on 8 mg disintegr ating tablet DISSOLVE 1 TABLET ON THE TONGUE TWICE DAILY NEEDED 10/01 completed Not Available Not Available Not Available potassium chloride ER 20 mEq tablet,ex tended release(p art/cryst ) 1 tab po daily 07/[address] Kaci sheehan dc 06/2022 Not Available Not Available Not Available levothyro xine 125 mcg tablet TAKE 1 TABLET BY MOUTH EVERY MORNING ON AN EMPTY STOMACH active Not Available Not Available No t Available phenobarb ital 30 mg tablet TAKE 1 TABLET BY MOUTH EVERY MORNING AND 2 TABLETS AT BEDTIME active Not Available Not Available No t Available furosemid e 20 mg tablet 1 tab po daily 07/[address] Kaci sheehan dc 06/2022 Not Available Not Available Not Available ceftriaxo ne 10 gram solution for injection 10/01 completed Not Available Not Available Not Available ceftriaxo ne 2 gram solution for injection 10/01 completed Not Available Not Available Not Available oxycodone 5 mg tablet 06/20 completed Not Available Not Available Not Available acetamino phen 2 tabs q 6 hours as needed 10/01 completed Not Available Not Available Not Available Vitals Date Recorded Body mass index (BMI) Body height Oxygen saturation Oxygen saturation in Arterial blood by Pulse oximetry Heart rate Respiratory rate Body temperature Body weight Systolic blood pressure Diastolic blood pressure Provider Name and Address Organization Details Last Updated DateTime 3 22.5 kg/m2 177.8 cm 97 % 97 % 106 /min 16 /min 98.5 [degF] 09094.2 8 g 120 mm[Hg] 78 mm[Hg] Not Available [facility] 3 01:46:53 Date Recorded Body mass index (BMI) Body height Oxygen saturation Oxygen saturation in Arterial blood by Pulse oximetry Heart rate Respiratory rate Body temperature Body weight Systolic blood pressure Diastolic blood pressure Provider Name and Address Organization Details Last Updated DateTime 3 22.4 kg/m2 177.8 cm 98 % 98 % 98 /min 16 /min 98.1 [degF] 17596.7 7 g 106 mm[Hg] 69 mm[Hg] Not Available [facility] 3 01:46:53 Date Recorded Body height Body mass index (BMI) Body weight Body temperature Respiratory rate Heart rate Oxygen saturation Oxygen saturation in Arterial blood by Pulse oximetry Systolic blood pressure Diastolic blood pressure Provider Name and Address Organization Details Last Updated DateTime 3 177.8 cm 21.4 kg/m2 90254.3 1 g 97 [degF] 20 /min 88 /min 99 % 99 % 90 mm[Hg] 68 mm[Hg] Dionna Gerardo RN [facility] [employer] [facility] 3 11:26:37 Date Recorded Body height Body mass index (BMI) Body weight Body temperature Heart rate Respiratory rate Oxygen saturation Oxygen saturation in Arterial blood by Pulse oximetry Pain severity - 0-10 verbal numeric rating [Score] - Reported Systolic blood pressure Diastolic blood pressure Provider Name and Address Organization Details Last Updated DateTime 3 177.8 cm 20.5 kg/m2 94644.0 6 g 96.9 [degF] 88 /min 16 /min 98 % 98 % 0 128 mm[Hg] 80 mm[Hg] Dionna Gerardo RN [facility] [employer] [facility] 3 08:05:21 Social History Question Answer Notes LastModified by Organization Details LastModified Time Tobacco Smoking Status Never Smoker Dionna Gerardo RN [facility] 10/01/2022 08:01:50 Do You Have An Advance Directive? No [id number] Information not available 05/29/2022 What Is Your Level Of Alcohol Consumption? Occasional [id number] Information not available 05/29/2022 Are You Blind Or Do You Have Difficulty Seeing? Yes Wears Glasses Information not available 10/01/2022 What Is Your Level Of Caffeine Consumption? Moderate [id number] Information not available 05/29/2022 What Is Your Code Status? Full Code Information not available 10/01/2022 In The 14 Days Before Symptom Onset, Have You Had Close Contact With A [facility]-19 While That Case Was Ill? No Information not available 10/01/2022 In The 14 Days Before Symptom Onset, Have You Had Close Contact With A Person Who Is Under Investigation For COVID-19 While That Person Was Ill? No Information not available 10/01/2022 Are You Deaf Or Do You Have Serious Difficulty Hearing? No Information not available 10/01/2022 What Type Of Diet Are You Following? REGULAR Heart Healthy Diet Information not available 06/20/2022 What Is The Highest Grade Or Level Of School You Have Completed Or The Highest Degree You Have Received? [id number] Information not available 10/01/2022 What Is Your Occupation? [employer] Information not available 10/01/2022 Have There Been Any Changes To Your Family Or Social Situation? No Information not available 10/01/2022 Are There Any Guns Present In Your Home? Yes Information not available 10/01/2022 Do You Use Insect Repellent Routinely? No Information not available 10/01/2022 Where Do You Live? SingleLevelHouse Information not available 10/01/2022 Do You Have A Medical Power Of Quantitative Consultant? No Information not available 10/01/2022 How Many Children Do You Have? 3 Information not available 10/01/2022 Do You Have Any Pets? Yes Information not available 10/01/2022 What Is Your Relationship Status? [id number] Information not available 05/29/2022 Do You Use Your Seat Belt Or Car Seat Routinely? Yes Information not available 10/01/2022 Do You Have Smoke And Carbon Monoxide Detectors In Your Home? Yes Information not available 10/01/2022 Are There Any Smokers In Your House? No Information not available 10/01/2022 Do You Participate In Social Media? No Information not available 10/01/2022 Do You Feel Stressed (tense, Restless, Nervous, Or Anxious, Or Unable To Sleep At Night)? [id number] Information not available 10/01/2022 Do You Use Any Illicit Or Recreational Drugs? No Information not available 10/01/2022 Do You Use Sunscreen Routinely? No Information not available 10/01/2022 Have You Recently Traveled Abroad? No Information not available 10/01/2022 Sex: Male Functional Status Question Answer Note LastModified by Organizat ion Details LastModified Time Do you have difficulty walking or climbing stairs? Yes Information not available 10/01/2022 Do you have transportation difficulties? No Information not available 10/01/2022 Are you able to walk? YESWOREST Information not available 10/01/2022 Do you have difficulty doing errands alone? limited Information not available 10/01/2022 Are you able to care for yourself? Yes Information n ot available 10/01/2022 Do you have difficulty dressing or bathing? No Information not available 10/01/2022 What is your exercise level? Occasional Information not available 06/20/2022 Mental Status Question Answer Note LastModified by Organization D etails LastModified Time Do you have difficulty concentrating, remembering or making decisions? No Information no t available 10/01/2022 Family History Relationship Description Onset Age of this Age Resolved Age Notes LastModified by Organization Details LastModified Time Father Family history of malignant neoplasm father side [id number] Not available 05/29/2022 01:46:48 Mother Family history of malignant neoplasm mother s side [id number] Not available 05/29/2022 01:46:48 Mother Congestive heart failure mother from this in hospit al [id number] Not available 05/29/2022 01:46:48 Medical History Condition Response HYPERTHYROIDISM Y HEART DISEASE/HEART PROBLEMS Y Immunizations Vaccine Type Date Status Note Provider Nam e and Address Organization Details Recorded Time Tdap 7 completed Not Available [facility] 05/29/2022 01:47:26 pneumococcal polysaccharide PPV23 3 completed Not Available [facility] 05/29/2022 01:47:26 Past Encounters Encounter ID Performer Location Encounter Start Date Encounter Closed Date Diagnosis/Indication Diagnosis SNOMED-CT Code Diagnosis ICD10 Code Diagnosis Note [id number] [facility] [address] [place] [id number] 1 05/07/2022 00:00:00 05/07/2022 12:54:[id number] [address] 05/13/2022 00:00:00 05/13/2022 20:13:12 [id number] Dionna Souza NP [address] [address] 06/20/2022 11:13:01 06/20/2022 12:42:21 Epilepsy 53637584 G40.909 Will get in with neuro in August 2022.Pheno barbital 30 mg and dilantin 100 mg Hypothyroidism 20979476 E03.9 levothyrox ine 125 mcg. History of repair of mitral valve 212836766 Z98.890 on furosemide 20 mg from cardiology . Also on potassium ER 20 mg po daily. History of sepsis 625573 [id number] 22169 Z86.19 04/2022 [place]. [id number] Dionna Souza NP [address] [address] 10/01/2022 07:55:24 10/01/2022 08:52:05 Epilepsy 74420651 G40.[address] Denise goodman at [facility] nobarbital 30 mg and dilantin 100 mg Hypothyroidism 01389326 E03.9 levothyrox ine 125 mcg. History of repair of mitral valve 102128110 Z98.890 Metoprolol Succinate ER 50 mg 1.[address] Barrera Excessive cerumen in ear canal 911281365 H61.23 Nocturia 960519562 R35.1 psa Health Concerns Section Related Observation LastModified by Organization Detai ls LastModified Time None Recorded Concern Status LastModified by Organization Details LastModified Time None Recorded Advance Directives Directive N: Payers Encounter Date Sequence Insurance Name Policy Number Policy Larson Covered Member ID Larson Member ID Guarantor Name 06/20/2022 1 [place] Juwan Torres [id number] Juwan Torres 06/20/2022 2 [place] [id number] Juwan Torres [id number] Juwan Torres 10/01/2022 1 [place] Juwan Torres [id number] Juwan Torres 10/01/2022 2 [place] [id number] Juwan Torres [id number] Juwan Torres Notes Date Note Type Note Provider Name and Address Organization Details Recorded Time 06/20/2022 text/html Here for [facility] follow up from [place]. Went in to hospital due to weakness which started back around 2021 and spiked a fever. [place] down and weak. took him to [facility] in [place] where he was found to have a high WBC, fever. Started on IV antibiotics and admitted. Was in hospital for 3-4 weeks. Found to have pericarditis and infection thought to have started from a cracked tooth. Tooth was extracted during hospital stay. Also had ECHO heart done inpatient and mitral valve was surgically repaired- orig was to have outpatient echo due to known mitral regurg, but concern arose in hospital that infection may be present there, so pt had procedure done prior to discharge. Today, patient states he is fever free, feeling well, still getting 2-3 more weeks of IV antibiotics at home via left arm PICC line. Has home health that came yesterday. Still awaiting to get into neuro- appt in august. Due for epilepsy meds to be refilled.Has some trouble sleeping at night. Hasn't been sleeping well at night, so taking a nap during the day, then again, not able to sleep the next night. Dionna Souza NP [address] [facility] [address], [place], [address], [place] [facility] 06/23/2022 08:18:39 10/01/2022 text/html Here for check u p. Epilepsy- Dilantin and phenobarbital Dr. Walker in [place], [place]. Stable.Hypothyroid- Last checked april 2022.Mitral valve repair hx- Bruce.Sepsis hx- recent blood culture negative. September 20 went to hospital for ECHO and found something on heart. Phone call on way home found spot on heart and concerned infection returned. Low pressure valve had a spot. Has not seen Dr. Barrera since all of this started. ECHO was 'routine'. Energy level has returned since infection.Sleep- waking up 2-3 times nightly. Dry mouth. Does fall back to sleep without issue. Has pimples on upper chest and neck area. Not bothering him, but wondered if that was a medication side effect. Dionna Souza NP [address] [facility] [address], [place], [address], [place] - [facility] 10/01/2022 08:38:25
--- OUTSIDE RECORDS SUMMARY | 2024-06-16 08:17 | XMS_ITS | Clinical Summary ---
Author Organization [facility] Address [facility] [place] [address] Care Team Providers Care Account Contact Associate Name Role Phone Dionna Souza [facility] Primary Care Provider + Allergies No known active allergies Medications DILANTIN 100 MG capsule [id number] Dilantin 100 mg oral capsule, extended release 100 mg oral capsule, extended release Take 1 cap(s) oral 2 times a day; Take 1 cap in am and 2 caps at night 06/12/2022 Active amoxicillin (AMOXIL) 500 MG capsule Take 1 capsule (500 mg total) by mouth as needed (ONLY FOR DENTAL PROCEDURES). 10/16/2022 Active levothyroxine (SYNTHROID) 125 MCG tablet Take 1 tablet (125 mcg total) by mouth every morning. Active metoprolol succinate ER (TOPROL-XL) 50 MG 24 hr tablet Take 1 tablet (50 mg total) by mouth daily. 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 30 capsule 11 02/23/2024 Active Active Problems No known active problems Immunizations Name Administration Dates Next Due PFIZER COVID-19 (ORIGINAL FO RMULATION, PURPLE CAP) mRNA, LNP-S, PF, 30 MCG/0.3 ML DOSE 07/08/2020,06/12/2020 Pneumococcal (Pneumovax 23) 05/07/2022 Tdap (Generic) 12/31/2016 Family History Medical History Relation Comments Heart Attack Mother Relation Status Comments Mother Social History Tobacco Use Types Packs/Day Years Used Date Smoking Tobacco: Never Smokeless Tobacco: Never Tobacco Cessation:Counseling Given: No Alcohol Use Standard Drinks/Week Comments Yes 0 (1 standard drink = 0.6 oz pur e alcohol) occasional PHQ-2 Answer Date Recorded Patient Health Questionnaire-2 Score 3 09/09/2022 Sex and Gender Information Value Date Recorded Sex Assigned at Male 10/14/2022 12:34 PM CDT Legal Sex Male 3:[address] Gender Identity Male 10/14/2022 12:34 PM CDT Sexual Orientation Not on file Last Filed Vital Signs Vital Sign Reading Time Taken Comments Blood Pressure 148/90 02/23/2024 9:[address] Pulse 72 02/23/2024 9:[address] Temperature 36.8 C (98.2 F) 02/23/2024 9:[address] Respiratory Rate 16 12/25/2022 1:31 PM CDT Oxygen Saturation 97% 02/23/2024 9:[address] Inhaled Oxygen Concentration - - Weight 76.9 kg (169 lb 8 oz) 02/23/2024 9:[address] Height 177.8 cm (5' 10 ) 02/23/2024 9:[address] Body Mass Index 24.32 02/23/2024 9:[address] Plan of Treatment Upcoming Encounters Date Type Department Care Team (Late st Contact Info) Description 08/29/2024 8:40 AM CDT Office Visit [facility] [address] [facility], [address] [place] [address] Mark Guerrier MD [address] [place] [id number] Health Maintenance Due Date Last Done Comments Colorectal Cancer Screening Colonoscopy (10 Years) 1955 Hepatitis C 10/05/1971 Zoster Vaccines (1 of 2) 10/05/2003 Annual Medicare Wellness Visit 2018 Pneumococcal Vaccine: 65+ Years (2 of 2 - PCV) 05/07/2023 05/07/2022 COVID-19 Vaccine (3 - 2023-2 5 season) 2023 07/08/2020, 06/12/2020 Influenza Adult (#1) 2023 PHQ-2 (Physician Dennis) 03/30/2024 09/09/2022 DTaP, Tdap and Td Vaccines ( 2 - Td or Tdap) 12/31/2026 12/31/2016 RSV Immunization or 60+ Years (1 - 1-dose 75+ series) 2028 Meningococcal B Vaccine Aged Out No l onger eligible based on patient's age to complete this topic Meningococcal Vaccine Aged Out No ed stephanie eligible based on patient's age to complete this topic RSV Immunizations Under 20 Months Aged Out No longer eligible b ased on patient's age to complete this topic Insurance MEDICARE [facility] Care Teams Account Contact Associate Relationship Specialty Start Date End Date Dionna Souza, OPHTHALMIC TECH- [address] [place] [address] PCP - General NURSE PRACTITIONER 05/09/22
--- OUTSIDE RECORDS SUMMARY | 2024-06-16 08:18 | XMS_ITS | Referral Summary ---
Author Organization [facility] [address] [facility] [address] Address [address] [place] [address] Care Team Providers Care Drawing Instructor Name Role Phone Jaime Cage MD Unavailable Viola Hart MD Unavailable Miscellaneous, Not In File Unavailable Unava ilDionna Pope FARO DEALER Primary Care Provider + Encounters Date Type Department Care Team Description 06/09/2024 Orders Only [facility] Health Information Management [address] [place] [address] Scanning, Provider 04/14/2024 8:45 AM GREY INSPECTOR Office Visit [facility] Cardiology [address] [place] [address] Abdirahman Barrera MD Vegetative endocarditis of mitral valve (Primary Dx); H/O mitral valve repair from Last 3 Months Allergies No known active allergies Medications PHENobarbital (LUMINAL) 30 mg tablet 5 03/01/2019 Active levothyroxine (SYNTHROID) 125 mcg tablet TK 1 T PO QAM OES 6 02/27/2019 Active metoprolol XL (TOPROL-XL) 50 mg extended release tablet TAKE 1 TABLET(50 MG) BY MOUTH DAILY 90 tablet 3 04/08/2023 Active Active Problems Problem Noted Date Diagnosed Date H/O mitral valve repair 07/08/2022 Acute postoperative pain 06/07/2022 Assessment & Plan (06/09/2022 11:45 AM CDT): Expected post-cardiac surgery- well controlled with current regimen Pain to day 110, so better control - continue APAP 1000 q 6 prn, oxycodone 5 q 4 prn Pulmonary nodule 06/07/2022 Assessment & Plan (06/07/2022 11:26 AM GREY INSPECTOR): Pre op workup revealed 6 mm pulmonary nodule that will require outpatient follow up. ABLA (acute blood loss anemia) 06/07/2022 Assessment & Plan (06/10/2022 10:54 AM CDT): In setting of cardiac surgery w/ CPB. Did not receive blood products intra op. Hgb 9.6 (stable) No s/s active bleeding. - consider transfusion for Hgb <7 or for s/s active bleeding w/ hemodynamic instability - CBC daily Leukocytosis 06/07/2022 Assessment & Plan (06/10/2022 10:55 AM CDT): Today down from 10.6 to 8.8 to 8.9 Likely inflammatory in setting of cardiac surgery. Afebrile. (05/22) Blood cultures w/ strep mitis bacteremia. Found to have fracture of tooth #15. S/p tooth extraction. TTE showed MV vegetations and severe MR. Ceftriaxone started and blood cultures (-) since 05/25. - consider cultures for T Max >38.5 or for new/increasing pressor requirements - trend WBC and fever curve - continue ceftriaxone for strep mitis endocarditis - ID following, appreciate rec's, waiting for final cx for sign off recs - follow up valve tissue cultures - CBC daily - obtain PICC line for home abx Vegetative endocarditis of mitral valve 05/26/19 Assessment & Plan (07/07/2022 12:26 PM CDT): - Doing well on IV ceftriaxone with no acute concerns today. He denies any fevers, chills, or night sweats. Surgical incision is healing well. Energy levels improving - Continue IV ceftriaxone 2g Q24H to complete 6 weeks of therapy. FIRM STOP on 07/16/22. PICC line to be removed by home health. - Continue weekly CBC and CMP while on IV antibiotics - Discussed with patient the rational for treatment, culture results, risk of recurrent infection, signs/symptoms of recurrent infection, and to contact ID clinic with any questions or concerns Assessment & Plan (06/10/2022 10:54 AM CDT): 66y/o male with remote h/o seizures, mitral valve prolapse with known mod-severe MR, hypothyroidism who presented to [facility] on 05/22 with fatigue and fevers which has been ongoing and worsening since 01/2022. He was found to have gram positive bacteremia and admitted for further evaluation. BCX with strep mitis bacteremia, felt to be oral source. He has had a tooth extracted. ECHO and JOSE, as above. JOSE on 05/28 with flail P2 scallop of posterior MV leaflet and mass measuring 1.1x0.7cm attached to the tip of the flail scallop-likely veg given its shape and size, severe eccentric MR. CTS is consulted for MV endocarditis with severe MR in the setting of strep mitis bacteremia. He has not had embolic sequelae that we are aware of. He is clearing his BCX on abx. However, he does have severe MR with a moderate-large sized vegetation. -[facility] without significant CAD OR as above Will plan on 6 weeks from day of surgery (06/04), awaiting final OR cx and blood cultures End date if it is 6 weeks from OR would be 07/16/22 Weekly CMP PICC line ordered Cultures from OR- no growth to date Assessment & Plan (05/31/2022 11:27 AM GREY INSPECTOR): Presented with vague complaints, fatigue, fevers as OP. Known hx MV regurgitation. Serial +strep mitis blood cxs, await clearance S/b ID & following. TTE+MV vegetation ESR 79, CRP 138.5 at initiation of therapy. Plan JOSE with findings concerning for vegetation CT surgery consulted, plan for surgery 06/04 Continue IV ceftriaxone, anticipate 4-6wks IV abx Assessment & Plan (05/26/2022 4:32 PM GREY INSPECTOR): Presented with vague complaints, fatigue, fevers as OP. Known hx MV regurgitation. Serial +strep mitis blood cxs, await clearance S/b ID & following. TTE+MV vegetation ESR 79, CRP 138.5 at initiation of therapy. Plan JOSE Thursday, NPO p MN CT surgery consult if JOSE confirms. Continue IV ceftriaxone, anticipate 4-6wks IV abx Fractured tooth 05/25/2022 Assessment & Plan (06/07/2022 11:24 AM GREY INSPECTOR): S/p dental extraction preop to surgery 05/26/22 Assessment & Plan (05/27/2022 3:49 PM GREY INSPECTOR): Distant onset, >2yrs. Concern may be source of strep bacteremia Panorex neg for apical abscess Oral surgery evaluation/consulted Plan S/p #15 tooth extraction 05/26 Post op precautions. Assessment & Plan (05/26/2022 4:27 PM GREY INSPECTOR): Distant onset, >2yrs. Concern may be source of strep bacteremia Panorex neg for apical abscess Oral surgery evaluation/consulted Plan S/p #15 tooth extraction 05/26 Post op precautions. Assessment & Plan (05/25/2022 12:31 PM GREY INSPECTOR): Distant onset, >2yrs. Concern may be source of strep bacteremia Plan Panorex Oral surgery evaluation/consult Severe mitral regurgitation 03/15/2019 Assessment & Plan (06/10/2022 10:54 AM CDT): Now s/p mitral valve repair w/ ring and Thien cord. Post CPB JOSE w/ normal BiV systolic function, no residual MR, mean gr 3 on no inotrope. Initially w/ MARGI physiology that resolved w/ volume resuscitation. HR 80s. Hemodynamically unsupported. S/P MV repair on 06/04/22 Transferred to the step down unit 06/06 JOSE post op with normal biventricular function - EPW removed 06/08 - ASA, metoprolol (increase as tolerated) - continue ceftriaxone, per ID (see below) - Lasix 20 po daily - TTE 06/07 - Hx of MVP, MV endocarditis, s/p MV repair w/ring and Thien cord. Mild LVH, normal systolic function by EF (63%), minimally reduced global longitudinal strain (-16.6%). Mild LAE. Normal RV size and function. Normal RA. Normal IVC. Upper normal size aortic root. S/p MV repair, no significant residual MR, mean gradient 3 mmhg. Mild TR Assessment & Plan (05/27/2022 3:50 PM GREY INSPECTOR): See MVP. Complicated by endocarditis dx this admit. Assessment & Plan (05/26/2022 4:30 PM GREY INSPECTOR): See MVP. Complicated by endocarditis dx this admit. Assessment & Plan (05/25/2022 12:42 PM GREY INSPECTOR): See MVP Hypothyroidism 03/15/2019 Assessment & Plan (06/07/2022 11:23 AM GREY INSPECTOR): Oon Levothyroxine 125 mcg at home, continue TSH 0.59 preop (nml) Assessment & Plan (05/27/2022 3:49 PM GREY INSPECTOR): Continue home synthroid, TSH 0.59 personally interpreted. Euthyroid. Plan plan to continue home dosing of synthroid. Assessment & Plan (05/26/2022 4:30 PM GREY INSPECTOR): Continue home synthroid, TSH 0.59 personally interpreted. Euthyroid. Plan plan to continue home dosing of synthroid. Assessment & Plan (05/25/2022 12:41 PM GREY INSPECTOR): Continue home synthroid, TSH 0.59 Euthyroid. Plan Lab interpreted and plan to continue home dosing of synthroid. Assessment & Plan (05/23/2022 12:20 PM GREY INSPECTOR): Continue home synthroid Seizure disorder (CMS/HCC) 03/15/2019 Assessment & Plan (06/07/2022 11:19 AM GREY INSPECTOR): - continue home phenobarbital and phenytoin -last seizure per pt was age 3, has been on medications since then Assessment & Plan (05/27/2022 3:49 PM GREY INSPECTOR): Continue home dilantin and phenobarb. No events this admit. Plan Antiepileptics and monitor for events. No events. Assessment & Plan (05/26/2022 4:32 PM GREY INSPECTOR): Continue home dilantin and phenobarb. No events this admit. Plan Antiepileptics and monitor for events. No events. Assessment & Plan (05/25/2022 12:42 PM GREY INSPECTOR): Continue home dilantin and phenobarb. No events this admit. Plan Antiepileptics and monitor for events. Assessment & Plan (05/25/2022 12:18 PM GREY INSPECTOR): Continue home dilantin and phenobarb. No events this admit. 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 During this time he also notably strained his back and has lower back pain mostly with changes in position. Due to persistent fevers his PCP recommended ED. In ED, he was febrile, tachycardic. Labs notable for WBC 12.9, hgb 12.0, alk ph 155, ALT 66, Na 130. CT chest showed no acute findings (6mm pulm nodule rec f/u). CT head without acute findings. Found to have S mitis bacteremia. Panorex didn't show any acute findings. [facility] consulted due to pt c/o L upper dental pain particularly with chewing. On exam found to have fracture of tooth #15. S/p tooth extraction. TTE shows MV vegetations and severe MR. 06/04: -OR: thoracoscopic MV repair with ring annuloplasty with band and thien chord repair; Suspicious finding on tip of the P2 leaflet, ruptured chordae sent for pathology and cx. -OR cx: NGTD Plan: -Continue on ctx. -CBC with diff, CMP weekly while on ceftriaxone. -ID will continue follow for OR cx then give final recommendations. Hyponatremia 05/23/2022 06/07/2022 Assessment & Plan (06/03/2022 7:02 PM GREY INSPECTOR): Likely hypovolemic hyponatremia in setting of sepsis Hx hypothyroidism, TSH 0.59 euthyroid. Reviewed TSH 0.59 and euthyroid. -s/p IVF hydration with resolution. Plan monitor daily electrolytes. Encourage PO intake. Assessment & Plan (05/26/2022 4:28 PM GREY INSPECTOR): Likely hypovolemic hyponatremia in setting of sepsis Hx hypothyroidism, TSH 0.59 euthyroid. Reviewed TSH 0.59 and euthyroid. -s/p IVF hydration with resolution. Plan - monitor daily electrolytes. Encourage PO intake. Assessment & Plan (05/25/2022 12:41 PM GREY INSPECTOR): Likely hypovolemic hyponatremia in setting of sepsis Hx hypothyroidism, TSH 0.59 euthyroid. Plan Reviewed TSH 0.59 and euthyroid. -s/p IVF hydration with resolution. - monitor daily electrolytes. Encourage PO intake. Assessment & Plan (05/25/2022 12:19 PM GREY INSPECTOR): Likely hypovolemic hyponatremia in setting of sepsis Hx hypothyroidism, euthyroid. Plan Reviewed TSH and euthyroid. - IVF hydration - monitor daily electrolytes. Encourage PO intake. 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 Lactate wnl, HR improved w/ IVF. - blood cx + strep mitis 05/22, 05/23, 05/24. Cx 05/25 NGTD Initially treated with IV ancef (05/23- 05/25), change to IV Ceftriaxone 2gm IV Q12 (05/25-c) Source evaluation with TTE +MV vegetation c/w endocarditis, panorex neg abscess. Skin exam w/o obvious source. -Initially treated with IV ancef (05/23-05/25 ) changed to IV ceftriaxone (05/25- c). Serially positive blood cxs concerning for source control. Fractured tooth s/b Oral surgery s/p #15 tooth extraction 05/26. Cardiology consult for JOSE 05/28 with findings concerning for vegetation Plan: Continue IV ceftriaxone (05/25- ) CTS consulted, s/p C 05/29 without significant CAD. 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 Lactate wnl, HR improved w/ IVF. - blood cx + strep mitis 05/22, 05/23, 05/24. Cx 05/25 NGTD Initially treated with IV ancef (05/23- 05/25), change to IV Ceftriaxone 2gm IV Q12 (05/25-c) Source evaluation with TTE +MV vegetation c/w endocarditis, panorex neg abscess. Skin exam w/o obvious source. -Initially treated with IV ancef (05/23-05/25 ) changed to IV ceftriaxone (05/25- c). Serially positive blood cxs concerning for source control. Fractured tooth s/b Oral surgery s/p #15 tooth extraction 05/26. Cardiology consult for JOSE, likely Wed. NPO p MN Elizabeth Plan: -repeat daily blood cx until clear Continue IV ceftriaxone (05/25-c) Cardiology consult for JOSE to eval MV vegetation. Tooth extraction by oral surgery. 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 Lactate wnl, HR improved w/ IVF. - blood cx + strep mitis 05/22, 05/23. Cx 05/24 NGTD Initially treated with IV ancef (05/23- 05/25), change to IV Ceftriaxone 2gm IV Q12 (05/25-c) Source evaluation with TTE, panorex. Plan: -repeat daily blood cx until clear - ancef (05/23- ) changed to - ID c/s- appreciate recs - TTE r/o vegetation. -skin exam w/o obvious source. 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 Lactate wnl, HR improved w/ IVF. - blood cx + GPC in vanessa and chains, Plan: -repeat daily blood cx until clear - ancef (05/23- ) - ID c/s- appreciate recs - TTE r/o vegetation. -skin exam w/o obvious source. Mitral valve prolapse 03/15/20192022 Assessment & Plan (06/03/2022 7:02 PM GREY INSPECTOR): Abnormal mitral valve with hx prolapse, severe MR TTE 02/2022 reviewed and severe MR present. TTE endocarditis in setting of current strep bacteremia concerning for vegetations Plan CTS consulted; plan for OR 06/04 Assessment & Plan (05/26/2022 4:30 PM GREY INSPECTOR): Abnormal mitral valve with hx prolapse, severe MR TTE 02/2022 reviewed and severe MR present. TTE endocarditis in setting of current strep bacteremia. Plan Plan JOSE Continue IV abx as elsewhere. Assessment & Plan (05/25/2022 12:42 PM GREY INSPECTOR): Abnormal mitral valve with hx prolapse, severe MR TTE 02/2022 reviewed and severe MR present. Concern for underlying endocarditis in setting of current strep bacteremia. Plan TTE, low threshold for JOSE if neg Check ESR, CRP Continue IV abx as elsewhere. Assessment & Plan (05/25/2022 12:19 PM GREY INSPECTOR): Abnormal mitral valve with hx prolapse TTE 02/2022 reviewed and severe MR present. Concern for underlying endocarditis with current strep bacteremia. Plan TTE, low threshold for JOSE if neg Check ESR, CRP Continue IV abx as elsewhere. Social History Tobacco Use Types Packs/Day Years Used Date Smoking Tobacco: Never Smokeless Tobacco: Never Tobacco Cessation:Counseling Given: Not Answered Alcohol Use Standard Drinks/Week Comments Yes 0 (1 standard drink = 0.6 oz pur e alcohol) AUDIT-C Answer Date Recorded Frequency of Alcohol Consumption Monthly or less 03/15/2019 Average Number of Drinks Not on file 019 Frequency of Binge Drinking Not on file 02/27 Personal Safety Answer Date Recorded Getting School Help Needed Denies 03/21 Sex and Gender Information Value Date Recorded Sex Assigned at Not on file Legal Sex Male 2:47 AM GREY INSPECTOR Gender Identity Not on file Sexual Orientation Not on file Last Filed Vital Signs Vital Sign Reading Time Taken Comments Blood Pressure 124/78 04/14/2024 8:41 AM GREY INSPECTOR Pulse 79 04/14/2024 8:41 AM GREY INSPECTOR Temperature 37.2 C (98.9 F) 07/07/2022 10:35 AM CDT Respiratory Rate 18 06/11/2022 11:07 AM CDT Oxygen Saturation 96% 04/14/2024 8:41 AM GREY INSPECTOR Inhaled Oxygen Concentration - - Weight 78.7 kg (173 lb 6.4 oz) 04/14/2024 8:41 A M GREY INSPECTOR Height 177.8 cm (5' 10 ) 04/14/2024 8:41 AM GREY INSPECTOR Body Mass Index 24.88 04/14/2024 8:41 AM GREY INSPECTOR Plan of Treatment Not on file Medical Devices Implanted Type Area Blood Bank Technician Device Identifier Shelf Expiration Date Model / Serial / Lot [employer] Milka-Esquivel 34mm 41.6mm 34mm 74.7mm Flexible Band Template [id number] - [id number] - [id number] Implanted:Qty: 1 on 06/04/2022 by Viola Hart MD at [facility] N/A: Heart [employer] 01/14/2027 [id number] / [id number] / Procedures Procedure Name Priority Date/Time Associated Diagnosis Comments SCAN - OTHER ORDERS 06/09/2024 from Last 3 Months Results * SCAN - OTHER ORDERS (06/09/2024) Provider Scanning Final Result from Last 3 Months Insurance MEDICARE [facility] MEDICARE [facility] AET[employer] MEDICARE MEDICARE [facility] Advance Directives For more information, please contact: [phone] * Full Code (Latest Code Status on File) Date Activated Date Inactivated Comments 05/23/2022 2:09 PM 06/11/2022 8:58 PM Care Teams Drawing Instructor Relationship Specialty Start Date End Date Dionna Souza NP [address] [place] [address] [place] [address] PCP - General Nurse Practitioner 04/14/24 Jaime Cage MD Consulting Physician Cardiology 04/20/19 Viola Hart MD [id number] [place] [address] Cardiothoracic Surgery 06/11/22 Miscellaneous, Not In File 06/11/22
--- OUTSIDE RECORDS SUMMARY | 2024-06-16 08:18 | XMS_ITS | Clinical Summary ---
Author Organization [facility] [place] [address] Address [address] [place] [address] Care Team Providers Care Search Marketing Coordinator Name Role Phone Jaime Cage MD Unavailable [phone] Viola Hart MD Unavailable [phone] Miscellaneous, Not In File Unavailable Unava ilDionna Pope RIBBON BLOCKER Primary Care Provider + Allergies No known active allergies Medications PHENobarbital [...] controlled with current regimen Pain to day 1/10, so better control - continue APAP 1000 q 6 prn, oxycodone 5 q 4 prn Pulmonary nodule 06/07/2022 Assessment & Plan (06/07/2022 11:26 AM DOCUMENTATION SUPERVISOR): Pre op workup revealed 6 mm pulmonary [...] known mod-severe MR, hypothyroidism who presented to [facility] on 05/22 with fatigue and fevers which [...] severe MR with a moderate-large sized vegetation. -C without significant CAD OR as above Will plan on 6 weeks from day of surgery (06/04), awaiting final OR cx and blood cultures End date if it is 6 weeks from OR would be 07/16/22 Weekly CMP PICC line ordered Cultures from OR- no growth to date Assessment & Plan (05/31/2022 11:27 AM DOCUMENTATION SUPERVISOR): Presented with vague complaints, fatigue, fevers as OP. Known hx MV regurgitation. Serial +strep mitis blood cxs, await clearance S/b ID & following. TTE+MV vegetation ESR 79, CRP 138.5 at initiation of therapy. Plan JOSE with findings concerning for vegetation CT surgery consulted, plan for surgery 06/04 Continue IV ceftriaxone, anticipate 4-6wks IV abx Assessment & Plan (05/26/2022 4:32 PM DOCUMENTATION SUPERVISOR): Presented with vague complaints, fatigue, fevers as OP. Known hx MV regurgitation. Serial +strep mitis blood cxs, await clearance S/b ID & following. TTE+MV vegetation ESR 79, CRP 138.5 at initiation of therapy. Plan JOSE Thursday, NPO p MN CT surgery consult if JOSE confirms. Continue IV ceftriaxone, anticipate 4-6wks IV abx Fractured tooth 05/25/2022 Assessment & Plan (06/07/2022 11:24 AM DOCUMENTATION SUPERVISOR): S/p dental extraction preop to surgery 05/26/22 Assessment & Plan (05/27/2022 3:49 PM DOCUMENTATION SUPERVISOR): Distant onset, >2yrs. Concern may be source of strep bacteremia Panorex neg for apical abscess Oral surgery evaluation/consulted Plan S/p #15 tooth extraction 05/26 Post op precautions. Assessment & Plan (05/26/2022 4:27 PM DOCUMENTATION SUPERVISOR): Distant onset, >2yrs. Concern may be source of strep bacteremia Panorex neg for apical abscess Oral surgery evaluation/consulted Plan S/p #15 tooth extraction 05/26 Post op precautions. Assessment & Plan (05/25/2022 12:31 PM DOCUMENTATION SUPERVISOR): Distant onset, >2yrs. Concern may be source of strep bacteremia Plan Panorex Oral surgery evaluation/consult Severe mitral regurgitation 03/15/2019 Assessment & Plan (06/10/2022 10:54 AM CDT): Now s/p mitral valve repair w/ ring and Leonid cord. Post CPB JOSE w/ normal BiV [...] MV endocarditis, s/p MV repair w/ring and Leonid cord. Mild LVH, normal systolic function by EF (63%), minimally reduced global longitudinal strain (-16.6%). Mild LAE. Normal RV size and function. Normal RA. Normal IVC. Upper normal size aortic root. S/p MV repair, no significant residual MR, mean gradient 3 mmhg. Mild TR Assessment & Plan (05/27/2022 3:50 PM DOCUMENTATION SUPERVISOR): See MVP. Complicated by endocarditis dx this admit. Assessment & Plan (05/26/2022 4:30 PM DOCUMENTATION SUPERVISOR): See MVP. Complicated by endocarditis dx this admit. Assessment & Plan (05/25/2022 12:42 PM DOCUMENTATION SUPERVISOR): See MVP Hypothyroidism 03/15/2019 Assessment & Plan (06/07/2022 11:23 AM DOCUMENTATION SUPERVISOR): Oon Levothyroxine 125 mcg at home, continue TSH 0.59 preop (nml) Assessment & Plan (05/27/2022 3:49 PM DOCUMENTATION SUPERVISOR): Continue home synthroid, TSH 0.59 personally interpreted. Euthyroid. Plan plan to continue home dosing of synthroid. Assessment & Plan (05/26/2022 4:30 PM DOCUMENTATION SUPERVISOR): Continue home synthroid, TSH 0.59 personally interpreted. Euthyroid. Plan plan to continue home dosing of synthroid. Assessment & Plan (05/25/2022 12:41 PM DOCUMENTATION SUPERVISOR): Continue home synthroid, TSH 0.59 Euthyroid. Plan Lab interpreted and plan to continue home dosing of synthroid. Assessment & Plan (05/23/2022 12:20 PM DOCUMENTATION SUPERVISOR): Continue home synthroid Seizure disorder ([facility]) 03/15/2019 Assessment & Plan (06/07/2022 11:19 AM DOCUMENTATION SUPERVISOR): - continue home phenobarbital and phenytoin -last seizure per pt was age 3, has been on medications since then Assessment & Plan (05/27/2022 3:49 PM DOCUMENTATION SUPERVISOR): Continue home dilantin and phenobarb. No events this admit. Plan Antiepileptics and monitor for events. No events. Assessment & Plan (05/26/2022 4:32 PM DOCUMENTATION SUPERVISOR): Continue home dilantin and phenobarb. No events this admit. Plan Antiepileptics and monitor for events. No events. Assessment & Plan (05/25/2022 12:42 PM DOCUMENTATION SUPERVISOR): Continue home dilantin and phenobarb. No events this admit. Plan Antiepileptics and monitor for events. Assessment & Plan (05/25/2022 12:18 PM DOCUMENTATION SUPERVISOR): Continue home dilantin and phenobarb. No events this admit. 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 male who works as a [...] repair with ring annuloplasty with band and leonid chord repair; Suspicious finding on tip of the P2 leaflet, ruptured chordae sent for pathology and cx. -OR cx: NGTD Plan: -Continue on ctx. -CBC with diff, CMP weekly while on ceftriaxone. -ID will continue follow for OR cx then give final recommendations. Hyponatremia 05/23/2022 06/07/2022 Assessment & Plan (06/03/2022 7:02 PM DOCUMENTATION SUPERVISOR): Likely hypovolemic hyponatremia in setting of sepsis Hx hypothyroidism, TSH 0.59 euthyroid. Reviewed TSH 0.59 and euthyroid. -s/p IVF hydration with resolution. Plan monitor daily electrolytes. Encourage PO intake. Assessment & Plan (05/26/2022 4:28 PM DOCUMENTATION SUPERVISOR): Likely hypovolemic hyponatremia in setting of sepsis Hx hypothyroidism, TSH 0.59 euthyroid. Reviewed TSH 0.59 and euthyroid. -s/p IVF hydration with resolution. Plan - monitor daily electrolytes. Encourage PO intake. Assessment & Plan (05/25/2022 12:41 PM DOCUMENTATION SUPERVISOR): Likely hypovolemic hyponatremia in setting of sepsis Hx hypothyroidism, TSH 0.59 euthyroid. Plan Reviewed TSH 0.59 and euthyroid. -s/p IVF hydration with resolution. - monitor daily electrolytes. Encourage PO intake. Assessment & Plan (05/25/2022 12:19 PM DOCUMENTATION SUPERVISOR): Likely hypovolemic hyponatremia in setting of sepsis Hx hypothyroidism, euthyroid. Plan Reviewed TSH and euthyroid. - IVF hydration - monitor daily electrolytes. Encourage PO intake. Sepsis due to Streptococcus species 05/22/2022 06/07/2022 Assessment & Plan (06/03/2022 7:03 PM DOCUMENTATION SUPERVISOR): Subacute presentation w/ malaise, fatigue, now w/ [...] IV ceftriaxone (05/25- ) CTS consulted, s/p LHC 05/29 without significant CAD. Plan for surgery 06/04 Assessment & Plan (05/26/2022 4:26 PM DOCUMENTATION SUPERVISOR): Subacute presentation w/ malaise, fatigue, now w/ [...] for JOSE, likely Wed. NPO p MN TUes Plan: -repeat daily blood cx until clear Continue IV ceftriaxone (05/25-c) Cardiology consult for JOSE to eval MV vegetation. Tooth extraction by oral surgery. Assessment & Plan (05/25/2022 12:40 PM DOCUMENTATION SUPERVISOR): Subacute presentation w/ malaise, fatigue, now w/ [...] source. Assessment & Plan (05/25/2022 12:20 PM DOCUMENTATION SUPERVISOR): Subacute presentation w/ malaise, fatigue, now w/ [...] 03/15/20192022 Assessment & Plan (06/03/2022 7:02 PM DOCUMENTATION SUPERVISOR): Abnormal mitral valve with hx prolapse, severe MR TTE 02/2022 reviewed and severe MR present. TTE endocarditis in setting of current strep bacteremia concerning for vegetations Plan CTS consulted; plan for OR 06/04 Assessment & Plan (05/26/2022 4:30 PM DOCUMENTATION SUPERVISOR): Abnormal mitral valve with hx prolapse, severe MR TTE 02/2022 reviewed and severe MR present. TTE endocarditis in setting of current strep bacteremia. Plan Plan JOSE Continue IV abx as elsewhere. Assessment & Plan (05/25/2022 12:42 PM DOCUMENTATION SUPERVISOR): Abnormal mitral valve with hx prolapse, severe MR TTE 02/2022 reviewed and severe MR present. Concern for underlying endocarditis in setting of current strep bacteremia. Plan TTE, low threshold for JOSE if neg Check ESR, CRP Continue IV abx as elsewhere. Assessment & Plan (05/25/2022 12:19 PM DOCUMENTATION SUPERVISOR): Abnormal mitral valve with hx prolapse TTE 02/2022 reviewed and severe MR present. Concern for underlying endocarditis with current strep bacteremia. Plan TTE, low threshold for JOSE if neg Check ESR, CRP Continue IV abx as elsewhere. Encounters Date Type Department Care Team Description 06/09/2024 Orders Only [facility] Health Information Management [address] [place] [address] Scanning, Provider 04/14/2024 8:45 AM DOCUMENTATION SUPERVISOR Office Visit [facility] Cardiology [address] [place] [address] Abdirahman Barrera MD Vegetative endocarditis of mitral valve (Primary Dx); H/O mitral valve repair from Last 3 Months Medical History Medical History Date Comments Severe mitral regurgitation Mitral valve prolapse Hypothyroidism Seizure disorder (HCC) Hyponatremia 05/23/2022 Sepsis due to Streptococcus species (HCC) 023 Family History Medical History Relation Name Comments Hypertension Brother Cancer Father Heart attack Mother Relation Name Status Comments Brother Alive Father Mother Social History Tobacco Use Types Packs/Day [...] on file Legal Sex Male 2:47 AM DOCUMENTATION SUPERVISOR Gender Identity Not on file Sexual Orientation Not on file Obstetrics History Last Filed Vital Signs Vital Sign Reading Time Taken Comments Blood Pressure 124/78 04/14/2024 8:41 AM DOCUMENTATION SUPERVISOR Pulse 79 04/14/2024 8:41 AM DOCUMENTATION SUPERVISOR Temperature 37.2 C (98.9 F) 07/07/2022 10:35 AM CDT Respiratory Rate 18 06/11/2022 11:07 AM CDT Oxygen Saturation 96% 04/14/2024 8:41 AM DOCUMENTATION SUPERVISOR Inhaled Oxygen Concentration - - Weight 78.7 kg (173 lb 6.4 oz) 04/14/2024 8:41 A M DOCUMENTATION SUPERVISOR Height 177.8 cm (5' 10 ) 04/14/2024 8:41 AM DOCUMENTATION SUPERVISOR Body Mass Index 24.88 04/14/2024 8:41 AM DOCUMENTATION SUPERVISOR Plan of Treatment Health Maintenance Due Date Last Done Comments Colon Cancer Screening-Colonoscopy 1955 Depression Screening 1955 Hepatitis C Screening 1955 Hepatitis B Screening 10/05/1971 Zoster Vaccine (1 of 2) 10/05/2003 Well Visit 65+ 2018 Pneumococcal vaccine 65+ (2 of 2 - PCV) 05/07/2023 0 05/07/2022 Fall Risk Assessment 06/11/2023 06/10/2022 Covid-19 Vaccine ( season) 11/29/202301/2021, 06/12/2020 Influenza Vaccine (#1) 2023 DTaP/Tdap/Td Vaccine (2 - Td or Tdap) 12/31/202606/2016 Medical Devices Implanted Type Area Lure Maker Device Identifier Shelf Expiration Date Model / Serial / Lot [employer] Milka-Esquivel 34mm 41.6mm 34mm 74.7mm Flexible Band Template [id number] - [id number] - [id number] Implanted:Qty: 1 on 06/04/2022 by Viola Hart MD at [facility] N/A: Heart [employer] 01/14/2027 [id number] / [id number] / Procedures Procedure Name Priority Date/Time Associated Diagnosis Comments SCAN - OTHER ORDERS 06/09/2024 from Last 3 Months Results * SCAN - OTHER ORDERS (06/09/2024) us Provider Scanning Final Result from Last 3 Months Insurance MEDICARE [facility] MEDICARE [facility] AETNA MEDICARE MEDICARE [facility] Advance Directives For more information, please contact: [phone] * Full Code (Latest Code Status on File) Date Activated Date Inactivated Comments 05/23/2022 2:09 PM 06/11/2022 8:58 PM Care Teams Search Marketing Coordinator Relationship Specialty Start Date End Date Dionna Souza NP [address] [place] [address] PCP - General Nurse Practitioner 04/14/24 Jaime Cage MD Consulting Physician Cardiology 04/20/19 Viola Hart MD [id number] [place] [address] Cardiothoracic Surgery 06/11/22 Miscellaneous, Not In File 06/11/22
== END 2024-06-16 08:14 | disposition home or self-care (01) ==
PROVIDERS: PCP Nurse Practitioner Family; Visit Provider Nurse Practitioner Family
DX: R91.1 Solitary pulmonary nodule (principal)
CPT/HCPCS: 71250

== ENCOUNTER 2025-01-18 08:16 | Emergency (ER) | payer MEDICARE, SELFPAY ==
--- NOTE | 2025-01-18 08:29 | ECG_ITS ---
Test Date: 2025-01-18 08:39:00 Measurements Intervals [place] Rate: 66 P: 22 OR: 175 QRS: 23 QRSD: 94 T: 64 QT: 374 QTc: 392 Interpretive Statements SINUS RHYTHM BASELINE ARTIFACT- II, III, AVR, AVL, AVF NORMAL ECG No previous ECG available for comparison Electronically Signed On 01-18-2025 09:17:26 CDT by Nabor Joseph D.O.
[2025-01-18 08:37] VITALS: BP 150/81; PULSE 66; RESP 16; TEMP 36.6; O2SAT 99
--- NOTE | 2025-01-18 08:50 | ED_ITS ---
HPI - General Adult General Chief complaint: Dizziness Stated complaint: Abdominal Pain/Dizziness Time Seen by Provider: 01/18/25 09:00 Source: patient and RN notes reviewed Mode of arrival: ambulatory Limitations: no limitations History of Present Illness HPI narrative: 69-year-old male patient presents to the [facility] complaining of dizziness and nausea approximately 4 days. Patient noticed it when he was laying down on the ground working on his car he felt very dizzy. Patient feels like the room was spinning. Patient says it comes and goes worse with position changes or if he turns his head too quickly. Patient denies any falls or injuries. Patient denies any headaches, vision changes, vomiting, chest pain, difficulty breathing, jaw pain, left arm pain, abdominal pain, diarrhea or black tarry stools, vomiting blood, blood in his stool, urinary symptoms, focal weakness, slurred speech, confusion, facial droop becoming other symptoms. Patient says this never happened before. Patient says he is currently being weaned off phenobarbital for history of seizures back in 1959. Patient also has a history of mitral valve regurgitation and prolapse that was surgically repaired. Patient says he takes a beta lisa. Patient denies any other cardiac history. Patient says he has in fact earwax in both of his ears, his primary try to remove it last month was unable to. Patient was it recommended to try earwax softener and he has not tried it. Related Data Home Medications ?Medication ?Instructions ?Recorded ?Confirmed ?Last Taken ?Type metoprolol succinate 50 mg 50 mg PO DAILY 06/16/23 Unknown History tablet,extended release 24 hr phenobarbital 30 mg tablet mg 01/18/25 Unknown Histor y Allergies Allergy/AdvReac Type Severity Reaction Status Date / Time No Known Allergies Allergy Mild Verified 01/18/25 08:53 Review of Systems Review of Systems: CONSTITUTIONAL: Denies fever, chills, or sweats. EYES: Denies visual changes, redness, or discharge. ENT: Denies rhinorrhea, congestion, sore throat, or otalgia. CARDIOVASCULAR: Denies chest pain, palpitations, lightheadedness or edema. Positive for dizziness. RESPIRATORY: Denies cough or dyspnea. GASTROINTESTINAL: Denies abdominal pain, vomiting, or diarrhea. Positive for nausea. GENITOURINARY: Denies dysuria or hematuria. SKIN: Denies rash or itching. MUSCULOSKELETAL: Denies back pain, joint pain, or myalgia. NEUROLOGIC: Denies headache, numbness, focal weakness, confusion, slurred speech, facial droop, or weakness. PSYCHIATRIC: Denies anxiety or depression. All other systems reviewed are negative, except as documented in HPI. [facility] Past Medical History Medical History Seizure disorder Hypothyroidism Mitral valve prolapse Mitral regurgitation Surgical History Surgical History H/O mitral valve repair H/O right knee surgery H/O cardiac catheterization Family History Family History Father Heart disease Mother Cancer Social History Social History Social History: Pt is very confident in filling out medical forms. Pt has not received assistance in the last 12 months. 11/28/23 Declined [facility] 11/27 Smoking status: Never smoker Second hand tobacco smoke exposure: No Alcohol intake: current Alcohol use details: SOCIALLY Substance use: current Substance use type: unknown Last use: occasional Do You Feel Safe in your Home?: Yes Lack of Transportation: YES Lack of Food: Never True Current Housing: I Have Housing Concerned About Future Housing: YES Difficulty Paying Gas/Electric Bills: YES Difficulty Paying for Meds: YES Currently Unemployed: No Education: Don't Know Difficulty w/ Childcare or Family Care: No Living arrangements: with family Occupation/Education: retired Additional occupation/education comments: [employer] Spiritual care concerns: No Agree to blood products: Yes Comments At the time of my signature, I reviewed and agree with the nursing past medical, surgical, social, and family history. There is no relevant family history pertinent to the patient complaint. Exam Narrative: GENERAL: This is a well-nourished, well-developed adult, in no apparent distress. They are non ill-appearing, nontoxic appearing. HEAD: normocephalic, atraumatic. EYES: Sclera clear/white. Conjunctiva normal. Vision is grossly intact. Extraocular movements intact. Horizontal nystagmus present. Positive Ferguson- Hallpike maneuver. Pupils PERRLA. EARS: External ears normal, auditory canals with impacted cerumen. Bilateral., unable to visualize TMs. Hearing grossly intact. NOSE: External nose normal with no obvious nasal discharge, nasal turbinates without redness, no rhinorrhea. THROAT: Mucous membranes moist, posterior pharynx clear, without erythema or swelling. Uvula midline. NECK: Neck supple, non-tender without lymphadenopathy, masses or thyromegaly. CARDIOVASCULAR: Regular rate and rhythm without murmurs, gallops, or rubs. RESPIRATORY: Clear to auscultation. Breath sounds equal bilaterally. No wheezes, rales, or rhonchi. GASTROINTESTINAL: Abdomen soft, non-tender, nondistended. Bowel sounds are active. No hepato-splenomegaly, or palpable masses. No guarding or rigidity. No rebound tenderness. SKIN: warm, Dry, intact with no suspicious lesions or rash, good texture and turgor. NEURO: awake, alert, and oriented to person, place and time. There were no obvious focal neurologic abnormalities. Cranial nerve 2-12 grossly intact. No pronator drift. No limb ataxia. Flag Car Driver strength 5/5 equal bilaterally. Arm strength 5/5 equal bilaterally, leg strength 5/5 equal bilaterally. No inattention or extinction. Normal dorsiflexion and plantar flexion. Gait is steady. EXTREMITIES: No joint tenderness, effusion, or edema noted. BACK: Nontender without deformity. No CVA tenderness. Course Course Emergency Course: Portions of this record may have been created with voice recognition software Level of Care: Express Care Visit Vital Signs Vital signs: Vital Signs Temperature 97.8 F 01/18/25 08:37 Pulse Rate 66 01/18/25 08:37 Respiratory Rate 16 01/18/25 08:37 Blood Pressure 150/81 H 01/18/25 08:37 Pulse Oximetry 99 01/18/25 08:37 Oxygen Delivery Room Air 01/18/25 08:37 Temperature 97.8 F 01/18/25 08:37 Pulse Rate 68 01/18/25 09:24 Respiratory Rate 16 01/18/25 08:37 Blood Pressure 153/99 H 01/18/25 09:24 Pulse Oximetry 99 01/18/25 08:37 Oxygen Delivery Room Air 01/18/25 08:37 Reviewed Medical Decision Making MDM Narrative Medical decision making narrative: EKG sinus rhythm without any ischemic findings. Orthostatics negative. The positive Ferguson-Hallpike maneuver, likely BPPV. Patient does have impacted cerumen, unsuccessfully irrigated by PCP, will not re-attempt since it has been unsuccessful. Patient likely needs professional removal. In the meantime will recommend patient use carbamide peroxide. Refer patient to ENT for earwax removal. Will send patient home on meclizine also give Zofran as needed for nausea. NIH score of 0. Patient neurologically intact. No concerning findings on exam. Offered patient ER transfer for symptoms any decline. Discussed physical exam findings. Advised supportive measures and signs/symptoms to go to the ER. Pt is appropriate for outpt treatment and f/u. Differential Diagnosis Differential Diagnosis: Vertigo, dizziness, CVA, TIA, impacted cerumen Vital Signs Vital Signs: Vital Signs Temperature 97.8 F 01/18/25 08:37 Pulse Rate 66 01/18/25 08:37 Respiratory Rate 16 01/18/25 08:37 Blood Pressure 150/81 H 01/18/25 08:37 Pulse Oximetry 99 01/18/25 08:37 Oxygen Delivery Room Air 01/18/25 08:37 Temperature 97.8 F 01/18/25 08:37 Pulse Rate 68 01/18/25 09:24 Respiratory Rate 16 01/18/25 08:37 Blood Pressure 153/99 H 01/18/25 09:24 Pulse Oximetry 99 01/18/25 08:37 Oxygen Delivery Room Air 01/18/25 08:37 ECG Data EKG #1: Attestation: I personally reviewed and interpreted this ECG as follows: ECG completion date: 01/18/25 ECG completion time: 08:39 Prior ECG tracings: not available for review EKG Interpretation: normal rate, sinus rhythm, no ectopy, no ST changes, normal QRS, normal QT and NL axis Critical Care Time Critical Care Time Critical Care Time: No Discharge Plan Discharge Clinical Impression: Vertigo, Bilateral impacted cerumen Patient Disposition: Home Condition: Stable Instructions: Carbamide Peroxide (Into the ear), Benign Paroxysmal Positional Vertigo (ED) Additional Instructions: Your EKG is normal sinus rhythm. Use carbamide peroxide 10 drops each ear twice a day for 4 days to soften your earwax. Please take meclizine as directed for dizziness. Use Zofran as needed for nausea and vomiting. Drink plenty of fluids. Change positions slowly. Follow-up with PCP in 3-5 days. Follow-up with ENT in 3-5 days for your impacted earwax. Please go to the ER if he develops worsening dizziness, unable to walk, vomiting, black tarry stools, chest pain, difficulty breathing, one-sided weakness, slurred speech, facial droop, severe headaches, vision changes, or any serious concerns. Patient Language: Lithuanian Prescriptions: New carbamide peroxide 6.5 % drops 10 drp EACH EAR Q12H 4 Days Qty: 15 0RF meclizine 25 mg tablet 25 mg PO TID PRN (Reason: dizziness) 3 Days Qty: 14 0RF ondansetron 4 mg tablet,disintegrating 4 mg PO Q8H PRN (Reason: nausea and vomiting) Qty: 12 0RF No Action phenobarbital 30 mg tablet metoprolol succinate 50 mg tablet extended release 24 hr 50 mg PO DAILY levothyroxine [Synthroid] 112 mcg tablet 112 mcg PO DAILY Qty: 90 0RF rosuvastatin 10 mg tablet 10 mg PO DAILY Qty: 90 1RF Follow-up/Referrals: Dionna Souza APRN [Primary Care Provider, Family Practice] Eric Gomez MD [Physician, Ear, Nose, Throat] Time of Disposition: 09:20
[2025-01-18 09:18] VITALS: BP 137/89; PULSE 65
[2025-01-18 09:20] VITALS: BP 147/83; PULSE 67
[2025-01-18 09:24] VITALS: BP 153/99; PULSE 68
== END 2025-01-18 09:38 | disposition home or self-care (01) ==
PROVIDERS: PCP Nurse Practitioner Family
DX: R42 Dizziness and giddiness (principal); H61.23 Impacted cerumen, bilateral; E03.9 Hypothyroidism, unspecified; G40.909 Epilepsy, unspecified, not intractable, without status epilepticus
CPT/HCPCS: 93005; 99213; G0463